=== PATIENT | male | born 1945 | race Caucasian/White ===

== ENCOUNTER 2024-09-11 21:26 | Inpatient (IN) | payer MEDICARE ==
[~2024-09-11] VITALS: Ht 167.6 cm; Wt 58.1 kg
[2024-09-11] MEDS ORDERED: AMIODARONE HCL 150 MG in DEXT 5% WATER 97 ML IV ONE (21:45)
[2024-09-11 22:15] VITALS: PULSE 112; RESP 34; O2SAT 97
[2024-09-11 22:15] LABS: BASOPHILS % 0.7 % (0.0-2.0); EOSINOPHILS % 2.3 % (0.0-5.0); HEMOGLOBIN. 14.1 g/dL (14.0-18.0); LYMPHOCYTES % 49.8 % (20.0-50.0); MEAN CORPUSCULAR HEMOGLOBIN 32.2 pg (28.0-32.0); MEAN CORPUSCULAR HGB CONC 32.2 g/dL (31.0-37.0); MEAN PLATELET VOLUME 9.2 fl (7.4-10.4); MONOCYTES % 3.9 % (2.0-8.0); NEUTROPHILS % 43.3 % (40.0-76.0); PLATELET 251 x1000/uL (130-400); RED CELL DISTRIBUTION WIDTH 13.6 % (11.6-14.6); WHITE BLOOD COUNT 14.9 x1000/uL (4.5-11.0)
[2024-09-11 22:20] LABS: CARBON DIOXIDE 16 mEq/L (21-32); CHLORIDE 106 mEq/L (98-107); POTASSIUM 3.1 mEq/L (3.5-5.1); SODIUM 139 mEq/L (136-145)
[2024-09-11 22:21] LABS: CALCIUM 8.7 mg/dL (8.7-10.4)
[2024-09-11 22:25] LABS: CREATININE 1.1 mg/dL (0.6-1.3)
[2024-09-11 22:26] LABS: GLUCOSE 285 mg/dL (70-105); UREA NITROGEN BLOOD 13 mg/dL (9-23)
[2024-09-11 22:27] LABS: ALANINE AMINOTRANSFERASE 120 IU/L (10-49); ASPARTATE AMINOTRANSFERASE 125 IU/L (<34)
[2024-09-11 22:28] LABS: BILIRUBIN DIRECT 0.4 mg/dL (<=3.0); BILIRUBIN TOTAL 1.6 mg/dL (0.1-1.0); PROTEIN TOTAL 6.7 g/dL (6.0-8.3)
[2024-09-11] MEDS: PROPOFOL 10MG/ML 100ML 100 ML IV STA (22:30)
[2024-09-11 22:31] LABS: D-DIMER 6.91 mg/L FEU (<0.50); INR 0.9; PARTIAL THROMBOPLASTIN TIME 30.5 sec (23.4-31.0); PROTHROMBIN TIME 10.6 sec (9.6-11.0)
[2024-09-11] MEDS: PIPERACILLIN/TAZO 3.375G/50ML 50 ML IV ONE (22:32)
[2024-09-11 22:34] LABS: ETHANOL BLOOD < 10 mg/dL (<10); LACTIC ACID 10.8 mmol/L (0.4-2.0); TROPONIN I HIGH SENSITIVITY 626 ng/L (3.0-53)
[2024-09-11 22:35] LABS: CLARITY URINE CLEAR (CLEAR); COLOR URINE YELLOW (YELLOW); GLUCOSE URINE 2+ (NEGATIVE); KETONES URINE NEGATIVE (NEGATIVE); LEUKOCYTE ESTERASE URINE NEGATIVE (NEGATIVE); NITRITE URINE NEGATIVE (NEGATIVE); OCCULT BLOOD URINE 3+ (NEGATIVE); PROTEIN URINE 2+ (NEGATIVE); SPECIFIC GRAVITY URINE 1.032 (1.005-1.030); UROBILINOGEN URINE 0.2 E.U./dL (0.2-1.0)
[2024-09-11 22:46] LABS: *AMPHETAMINES SCREEN URINE NEGATIVE (NEGATIVE); *BARBITURATES SCREEN URINE NEGATIVE (NEGATIVE); *BENZODIAZEPINES SCREEN URINE NEGATIVE (NEGATIVE); *COCAINE SCREEN URINE NEGATIVE (NEGATIVE); CANNABINOID URINE SCREEN PRESUMPTIVE POSITIVE (NEGATIVE); ECSTASY MDMA SCREEN URINE NEGATIVE (NEGATIVE); METHADONE URINE SCREEN NEGATIVE (NEGATIVE); OPIATES URINE SCREEN NEGATIVE (NEGATIVE); PHENCYCLIDINE URINE SCREEN NEGATIVE (NEGATIVE)
[2024-09-11 22:57] LABS: WBC URINE 0-2 /hpf (0-2)
[2024-09-11 22:58] LABS: BACTERIA URINE NONE SEEN; RBC URINE 15-25 /hpf (0-2); SQUAMOUS EPITHELIAL CELL URINE FEW /lpf (RARE/1+)
[2024-09-11] MEDS: SODIUM CHLORIDE 0.9% (SEPSIS BOLUS) IV ONE (23:01)
[2024-09-11] MEDS: AMIODARONE 150MG/100ML D5W 100 ML IV NR (23:08)
[2024-09-11] MEDS: IOHEXOL-350 100 ML BOTTLE ONE (23:29)
[2024-09-12] VITALS (93 sets, daily range): BP systolic 83–130; BP diastolic 46–94; PULSE 64–82; RESP 16–32; TEMP 37.1964–37.2252; O2SAT 91–100
[2024-09-12] MEDS: VANCOMYCIN 1G PREMIX 200 ML IV ONE (00:07)
[2024-09-12] MEDS: KCL 20MEQ/100ML PREMIX 100 ML IV ONE (00:27)
[2024-09-12] MEDS: ASPIRIN 300MG SUPP PR ONE (00:27)
[2024-09-12] MEDS: ENOXAPARIN 80MG/0.8ML SYR SUBCUT ONE (00:30)
[2024-09-12 01:03] LABS: TROPONIN I HIGH SENSITIVITY 2062 ng/L (3.0-53)
[2024-09-12 01:51] LABS: BG BASE EXCESS -5.3 mmol/L (-2.0-3.0); BG CARBOXYHEMOGLOBIN 0.3 % (0.5-1.5); BG DEOXYHEMOGLOBIN 0.4 % (0.0-5.0); BG FRACTION INSPIRED OXYGEN 100; BG METHEMOGLOBIN 0.1 % (0.5-1.5); BG OXYGEN SATURATION 99.6 % (94.0-98.0); BG OXYHEMOGLOBIN 99.2 % (94.0-98.0); BG PCO2 33.7 mmHg (35.0-48.0); BG PH 7.368 (7.350-7.450); BG PO2 232.7 mmHg (83.0-108.0); BG SAMPLE SITE RIGHT RADIAL; BG TOTAL HEMOGLOBIN 15.5 g/dL (13.5-17.5); BG VENT MODE VENT - AC
[2024-09-12] MEDS ORDERED: PROPOFOL 10MG/ML 100ML 100 ML IV PRN (02:45)
[2024-09-12] MEDS ORDERED: ONDANSETRON HCL 4MG/2ML INJ IV PRN (02:45)
[2024-09-12] MEDS: PROPOFOL 10MG/ML 100ML 100 ML IV PRN (03:01)
[2024-09-12 03:15] LABS: BG BASE EXCESS -7.1 mmol/L (-2.0-3.0); BG CARBOXYHEMOGLOBIN 0.1 % (0.5-1.5); BG DEOXYHEMOGLOBIN 0.4 % (0.0-5.0); BG FRACTION INSPIRED OXYGEN 100; BG HCO3 ACT 16.4 mmol/L (21.0-28.0); BG METHEMOGLOBIN 0.1 % (0.5-1.5); BG OXYGEN SATURATION 99.6 % (94.0-98.0); BG OXYHEMOGLOBIN 99.4 % (94.0-98.0); BG PCO2 28.2 mmHg (35.0-48.0); BG PH 7.382 (7.350-7.450); BG PO2 290.7 mmHg (83.0-108.0); BG SAMPLE SITE RIGHT RADIAL; BG TOTAL HEMOGLOBIN 14.6 g/dL (13.5-17.5); BG VENT MODE VENT - AC
[2024-09-12] MEDS ORDERED: PHENYLEPHRINE 50 MG in DEXT 5% WATER 245 ML IV PRN (03:30)
[2024-09-12] MEDS ORDERED: FENTANYL 2500MCG/250ML PMX 250 ML IV PRN (03:30)
[2024-09-12] MEDS: KCL 20MEQ/100ML PREMIX 100 ML IV SCH (03:46)
[2024-09-12] MEDS: SODIUM CHLORIDE 0.9% 1,000 ML IV SCH (03:46)
[2024-09-12] MEDS ORDERED: PHENYLEPHRINE 50MG/250ML PMX IV PRN (04:00)
[2024-09-12] MEDS: FENTANYL 2500MCG/250ML PMX 250 ML IV PRN (04:06)
[2024-09-12] MEDS ORDERED: HEPARIN 25,000 UNITS PREMIX 250 ML IV SCH (04:30)
[2024-09-12] MEDS ORDERED: GUAIFENESIN 200MG/10ML SUGAR FREE UDC PO PRN (04:45)
[2024-09-12] MEDS ORDERED: IPRATROPIUM/ALBUTEROL 0.5-3(2.5)MG/3ML NEB HHN PRN ×2 (04:45)
[2024-09-12] MEDS ORDERED: DEXTROSE 50% WATER 50ML SYRINGE IV PRN (04:45)
[2024-09-12] MEDS ORDERED: HEPARIN BOLUS PRN aPTT <30 IV (04:45)
[2024-09-12] MEDS ORDERED: DOCUSATE SODIUM 100MG CAPSULE PO PRN (04:45)
[2024-09-12] MEDS: PIPERACILLIN/TAZO 3.375G/50ML 50 ML IV SCH (06:31)
[2024-09-12] MEDS: BLOOD SUGAR DIAGNOSTIC STRIP TEST SCH (06:55)
[2024-09-12] MEDS: INSULIN LISPRO 100 UNITS/ML SUBCUT SCH (06:57)
[2024-09-12] MEDS: HEPARIN 25,000 UNITS PREMIX 250 ML IV SCH (07:37)
[2024-09-12] MEDS: HEPARIN 60 UNITS/KG BOLUS IV NR (07:45)
[2024-09-12 09:41] LABS: HEMATOCRIT. 43.5 % (42.0-52.0); HEMOGLOBIN. 14.4 g/dL (14.0-18.0); MEAN CORPUSCULAR HEMOGLOBIN 32.2 pg (28.0-32.0); MEAN CORPUSCULAR VOLUME 97.6 fL (80.0-94.0); MEAN PLATELET VOLUME 8.9 fl (7.4-10.4); PLATELET 239 x1000/uL (130-400); RED BLOOD CELL COUNT 4.46 mill/uL (4.7-6.1); RED CELL DISTRIBUTION WIDTH 13.5 % (11.6-14.6); WHITE BLOOD COUNT 22.7 x1000/uL (4.5-11.0)
[2024-09-12 09:59] LABS: DIFFERENTIAL COMMENT 1
[2024-09-12 10:07] LABS: CARBON DIOXIDE 20 mEq/L (21-32); CHLORIDE 106 mEq/L (98-107); POTASSIUM 4.5 mEq/L (3.5-5.1); SODIUM 137 mEq/L (136-145)
[2024-09-12 10:08] LABS: CALCIUM 8.8 mg/dL (8.7-10.4)
[2024-09-12 10:13] LABS: CREATININE 0.9 mg/dL (0.6-1.3); TRIGLYCERIDE 153 mg/dL (0-150); UREA NITROGEN BLOOD 14 mg/dL (9-23)
[2024-09-12 10:14] LABS: LDL CHOLESTEROL 71 mg/dL (5-100)
[2024-09-12 10:15] LABS: CHOLESTEROL 140 mg/dL (<200); HDL CHOLESTEROL 37 mg/dL (>55)
[2024-09-12 10:16] LABS: ALANINE AMINOTRANSFERASE 200 IU/L (10-49); ALBUMIN 3.9 g/dL (3.2-4.8); ASPARTATE AMINOTRANSFERASE 187 IU/L (<34); BILIRUBIN DIRECT 0.6 mg/dL (<=3.0); BILIRUBIN TOTAL 1.7 mg/dL (0.1-1.0); PHOSPHORUS 2.4 mg/dL (2.5-4.9); PROTEIN TOTAL 6.7 g/dL (6.0-8.3); THYROID STIMULATING HORMONE 4.42 uIU/mL (0.55-4.78)
[2024-09-12 10:18] LABS: LACTIC ACID 4.5 mmol/L (0.4-2.0)
[2024-09-12 10:22] LABS: GLUCOSE 135 mg/dL (70-105)
[2024-09-12 10:27] LABS: CREATINE KINASE 2910 IU/L (46-171)
[2024-09-12 10:28] LABS: TROPONIN I HIGH SENSITIVITY 3601 ng/L (3.0-53)
[2024-09-12] MEDS: ASPIRIN 81MG TABLET PO SCH (10:40)
[2024-09-12] MEDS: PANTOPRAZOLE SODIUM 40 MG/VIAL IV SCH (10:40)
[2024-09-12 11:32] LABS: FOLIC ACID (FOLATE) SERUM 12.19 ng/mL (>5.38); VITAMIN B12 SERUM 379 pg/mL (211-911)
[2024-09-12] MEDS: ACETAMINOPHEN 325MG TABLET PO PRN ×2 (12:02→22:36)
[2024-09-12 12:53] LABS: PLATELET ESTIMATE NORMAL
[2024-09-12] MEDS: ACETAMINOPHEN 650MG/20.3ML UDC NG NR (13:24)
[2024-09-12] MEDS ORDERED: VANCOMYCIN 750MG/150ML (BAXTER) IV SCH (15:00)
[2024-09-12 15:42] LABS: TROPONIN I HIGH SENSITIVITY 2426 ng/L (3.0-53)
[2024-09-12 15:46] LABS: CREATINE KINASE 2485 IU/L (46-171)
[2024-09-12] MEDS: VANCOMYCIN 750MG PREMIX 150 ML IV SCH (17:24)
[2024-09-12] MEDS: HEPARIN BOLUS PRN aPTT 30-44 IV (17:25)
[2024-09-12] MEDS: BUDESONIDE 0.5MG/2ML NEB HHN SCH (20:46)
[2024-09-12] MEDS: OSELTAMIVIR 75MG CAPSULE PO SCH (20:58)
[2024-09-12] MEDS: ATORVASTATIN CALCIUM 40MG TABLET PO SCH (20:58)
[2024-09-12] MEDS: PIPERACILLIN/TAZO 3.375G/100ML IV SCH (22:25)
[2024-09-13] VITALS (79 sets, daily range): BP systolic 83–133; BP diastolic 49–94; PULSE 61–83; RESP 10–21; TEMP 99.4–100.3; O2SAT 95–100
[2024-09-13 01:12] LABS: TROPONIN I HIGH SENSITIVITY 1409 ng/L (3.0-53)
[2024-09-13] MEDS ORDERED: FENTANYL 2500MCG/250ML PMX 250 ML IV PRN (01:15)
[2024-09-13] MEDS: PROPOFOL 10MG/ML 100ML 100 ML IV PRN (04:11)
[2024-09-13 05:41] LABS: BASOPHILS % 0.5 % (0.0-2.0); EOSINOPHILS % 0.4 % (0.0-5.0); HEMATOCRIT. 38.3 % (42.0-52.0); HEMOGLOBIN. 12.8 g/dL (14.0-18.0); LYMPHOCYTES % 13.3 % (20.0-50.0); MEAN CORPUSCULAR HEMOGLOBIN 32.1 pg (28.0-32.0); MEAN CORPUSCULAR HGB CONC 33.4 g/dL (31.0-37.0); MEAN PLATELET VOLUME 9.5 fl (7.4-10.4); MONOCYTES % 7.1 % (2.0-8.0); NEUTROPHILS % 78.7 % (40.0-76.0); PLATELET 203 x1000/uL (130-400); RED BLOOD CELL COUNT 3.99 mill/uL (4.7-6.1); RED CELL DISTRIBUTION WIDTH 13.8 % (11.6-14.6); WHITE BLOOD COUNT 15.8 x1000/uL (4.5-11.0)
[2024-09-13 05:45] LABS: CARBON DIOXIDE 22 mEq/L (21-32); CHLORIDE 108 mEq/L (98-107); POTASSIUM 3.7 mEq/L (3.5-5.1); SODIUM 139 mEq/L (136-145)
[2024-09-13 05:46] LABS: CALCIUM 7.9 mg/dL (8.7-10.4)
[2024-09-13 05:51] LABS: GLUCOSE 101 mg/dL (70-105); TRIGLYCERIDE 218 mg/dL (0-150); UREA NITROGEN BLOOD 10 mg/dL (9-23)
[2024-09-13 08:42] LABS: BG BASE EXCESS -5.7 mmol/L (-2.0-3.0); BG CARBOXYHEMOGLOBIN 0.3 % (0.5-1.5); BG DEOXYHEMOGLOBIN 3.2 % (0.0-5.0); BG FRACTION INSPIRED OXYGEN 50; BG METHEMOGLOBIN 0.3 % (0.5-1.5); BG OXYGEN SATURATION 96.8 % (94.0-98.0); BG OXYHEMOGLOBIN 96.2 % (94.0-98.0); BG PH 7.353 (7.350-7.450); BG PO2 90.4 mmHg (83.0-108.0); BG SAMPLE SITE RIGHT RADIAL; BG TOTAL HEMOGLOBIN 12.8 g/dL (13.5-17.5); BG VENT MODE VENT - P/C
[2024-09-13] MEDS: FENTANYL 2500MCG/250ML PMX 250 ML IV PRN (16:13)
[2024-09-13] MEDS: BLOOD SUGAR DIAGNOSTIC STRIP TEST SCH (17:30)
[2024-09-13] MEDS: INSULIN LISPRO 100 UNITS/ML SUBCUT SCH (18:00)
[2024-09-13] MEDS ORDERED: VANCOMYCIN 1.5GM PMX (XELLIA) 300 ML IV SCH (18:00)
[2024-09-13] MEDS: LORAZEPAM 2MG/ML INJ IV PRN (21:45)
[2024-09-13] MEDS ORDERED: FENTANYL CITRATE 2,500 MCG in SODIUM CHLORIDE 0.9% 200 ML IV PRN (23:45)
[2024-09-14] VITALS (72 sets, daily range): BP systolic 109–174; BP diastolic 48–106; PULSE 75–115; RESP 0–27; TEMP 37.7808; O2SAT 94–100
[2024-09-14] MEDS ORDERED: FENTANYL 2500MCG/250ML PMX 250 ML IV PRN ×2 (04:15→04:30)
[2024-09-14] MEDS ORDERED: FENTANYL CITRATE 2,500 MCG in SODIUM CHLORIDE 0.9% 200 ML IV PRN (04:15)
[2024-09-14 05:15] LABS: BASOPHILS % 0.4 % (0.0-2.0); EOSINOPHILS % 0.1 % (0.0-5.0); HEMATOCRIT. 33.1 % (42.0-52.0); HEMOGLOBIN. 11.1 g/dL (14.0-18.0); LYMPHOCYTES % 7.7 % (20.0-50.0); MEAN CORPUSCULAR HGB CONC 33.4 g/dL (31.0-37.0); MEAN CORPUSCULAR VOLUME 95.7 fL (80.0-94.0); MEAN PLATELET VOLUME 10.1 fl (7.4-10.4); MONOCYTES % 8.1 % (2.0-8.0); NEUTROPHILS % 83.7 % (40.0-76.0); PLATELET 184 x1000/uL (130-400); RED BLOOD CELL COUNT 3.46 mill/uL (4.7-6.1); RED CELL DISTRIBUTION WIDTH 13.8 % (11.6-14.6); WHITE BLOOD COUNT 14.4 x1000/uL (4.5-11.0)
[2024-09-14 05:21] LABS: PHOSPHORUS 2.1 mg/dL (2.5-4.9); TRIGLYCERIDE 143 mg/dL (0-150)
[2024-09-14] MEDS: PROPOFOL 10MG/ML 100ML 100 ML IV PRN (11:00)
[2024-09-14 13:20] LABS: BG BASE EXCESS -9.6 mmol/L (-2.0-3.0); BG CARBOXYHEMOGLOBIN 0.5 % (0.5-1.5); BG DEOXYHEMOGLOBIN 10.6 % (0.0-5.0); BG FRACTION INSPIRED OXYGEN 35; BG METHEMOGLOBIN 0.1 % (0.5-1.5); BG OXYGEN SATURATION 89.3 % (94.0-98.0); BG OXYHEMOGLOBIN 88.8 % (94.0-98.0); BG PCO2 46.1 mmHg (35.0-48.0); BG PO2 61.6 mmHg (83.0-108.0); BG SAMPLE SITE RIGHT RADIAL; BG TOTAL HEMOGLOBIN 12.7 g/dL (13.5-17.5); BG VENT MODE VENT - CPAP
[2024-09-14 13:28] LABS: CARBON DIOXIDE 18 mEq/L (21-32); CHLORIDE 110 mEq/L (98-107); POTASSIUM 3.7 mEq/L (3.5-5.1); SODIUM 139 mEq/L (136-145)
[2024-09-14 13:29] LABS: CALCIUM 8.2 mg/dL (8.7-10.4)
[2024-09-14 13:34] LABS: CREATININE 0.8 mg/dL (0.6-1.3); GLUCOSE 163 mg/dL (70-105); UREA NITROGEN BLOOD 10 mg/dL (9-23)
[2024-09-14 15:07] LABS: BG BASE EXCESS -4.9 mmol/L (-2.0-3.0); BG CARBOXYHEMOGLOBIN 0.3 % (0.5-1.5); BG DEOXYHEMOGLOBIN 6.8 % (0.0-5.0); BG FRACTION INSPIRED OXYGEN 40; BG HCO3 ACT 20.3 mmol/L (21.0-28.0); BG METHEMOGLOBIN 0.3 % (0.5-1.5); BG OXYGEN SATURATION 93.2 % (94.0-98.0); BG OXYHEMOGLOBIN 92.6 % (94.0-98.0); BG PCO2 37.8 mmHg (35.0-48.0); BG PH 7.347 (7.350-7.450); BG PO2 68.7 mmHg (83.0-108.0); BG SAMPLE SITE LEFT RADIAL; BG TOTAL HEMOGLOBIN 11.3 g/dL (13.5-17.5); BG TOTAL RESPIRATORY RATE 22 b/min; BG VENT MODE VENT - SIMV
[2024-09-14] MEDS: POTASSIUM PHOSPHATE 15 MMOL in DEXT 5% WATER 245 ML IV NR (15:44)
[2024-09-15] VITALS (107 sets, daily range): BP systolic 99–177; BP diastolic 49–142; PULSE 65–124; RESP 10–30; TEMP 36.6696–37.94748; O2SAT 78–100
[2024-09-15 06:14] LABS: BASOPHILS % 0.3 % (0.0-2.0); EOSINOPHILS % 0.1 % (0.0-5.0); HEMATOCRIT. 31.2 % (42.0-52.0); HEMOGLOBIN. 10.5 g/dL (14.0-18.0); LYMPHOCYTES % 8.8 % (20.0-50.0); MEAN CORPUSCULAR HEMOGLOBIN 32.5 pg (28.0-32.0); MEAN CORPUSCULAR HGB CONC 33.7 g/dL (31.0-37.0); MEAN CORPUSCULAR VOLUME 96.3 fL (80.0-94.0); MEAN PLATELET VOLUME 9.7 fl (7.4-10.4); MONOCYTES % 8.9 % (2.0-8.0); NEUTROPHILS % 81.9 % (40.0-76.0); PLATELET 182 x1000/uL (130-400); RED BLOOD CELL COUNT 3.24 mill/uL (4.7-6.1); RED CELL DISTRIBUTION WIDTH 13.4 % (11.6-14.6)
[2024-09-15 06:20] LABS: CHLORIDE 111 mEq/L (98-107); POTASSIUM 3.3 mEq/L (3.5-5.1); SODIUM 141 mEq/L (136-145)
[2024-09-15 06:21] LABS: CARBON DIOXIDE 20 mEq/L (21-32)
[2024-09-15 06:26] LABS: CREATININE 0.6 mg/dL (0.6-1.3); GLUCOSE 125 mg/dL (70-105); TRIGLYCERIDE 143 mg/dL (0-150); UREA NITROGEN BLOOD 8 mg/dL (9-23)
[2024-09-15 06:39] LABS: CREATINE KINASE 1726 IU/L (46-171); TROPONIN I HIGH SENSITIVITY 3984 ng/L (3.0-53)
[2024-09-15] MEDS ORDERED: LIDOCAINE HCL 1% 20ML VIAL ONE (08:12)
[2024-09-15] MEDS ORDERED: HEPARIN 1000 UNITS/ML 10ML ONE (08:12)
[2024-09-15] MEDS ORDERED: VERAPAMIL HCL 2.5 MG/1 ML 2ML VIAL IV ONE (08:19)
[2024-09-15] MEDS ORDERED: IODIXANOL 320MG/ML 100 ML BOTTLE IV ONE (08:19)
[2024-09-15] MEDS ORDERED: DIPHENHYDRAMINE 50MG/ML VIAL ONE (09:04)
[2024-09-15] MEDS ORDERED: ACETAMINOPHEN 325MG TABLET PO PRN ×2 (10:15→11:30)
[2024-09-15] MEDS ORDERED: NITROGLYCERIN 0.4MG TABLET SL SL PRN (11:30)
[2024-09-15 12:14] LABS: BG CARBOXYHEMOGLOBIN 0.3 % (0.5-1.5); BG FRACTION INSPIRED OXYGEN 50; BG HCO3 ACT 24.6 mmol/L (21.0-28.0); BG METHEMOGLOBIN 0.2 % (0.5-1.5); BG OXYHEMOGLOBIN 94.5 % (94.0-98.0); BG PCO2 44.5 mmHg (35.0-48.0); BG PO2 77.7 mmHg (83.0-108.0); BG SAMPLE SITE RIGHT RADIAL; BG TOTAL HEMOGLOBIN 10.6 g/dL (13.5-17.5); BG VENT MODE VENT - SIMV
[2024-09-15] MEDS: KCL 20MEQ/100ML PREMIX 100 ML IV SCH ×2 (12:33→20:14)
[2024-09-15] MEDS: PROPOFOL 10MG/ML 100ML 100 ML IV PRN (12:36)
[2024-09-15] MEDS ORDERED: EPOETIN ALFA 10000UNITS/ML VIAL SUBCUT NR (13:00)
[2024-09-15] MEDS: EPOETIN ALFA-EPBX 10,000 UNIT/ML VIAL SUBCUT NR (14:03)
[2024-09-15] MEDS: FUROSEMIDE 40MG/4ML VIAL IVP SCH (15:32)
[2024-09-15 17:27] LABS: CLARITY URINE CLEAR (CLEAR); COLOR URINE DARK YELLOW (YELLOW); GLUCOSE URINE NEGATIVE (NEGATIVE); KETONES URINE TRACE (NEGATIVE); LEUKOCYTE ESTERASE URINE NEGATIVE (NEGATIVE); NITRITE URINE NEGATIVE (NEGATIVE); OCCULT BLOOD URINE 2+ (NEGATIVE); PH URINE 5.5 (4.5-8.0); PROTEIN URINE 2+ (NEGATIVE); SPECIFIC GRAVITY URINE 1.068 (1.005-1.030)
[2024-09-15 17:54] LABS: BACTERIA URINE 1+; RBC URINE 15-25 /hpf (0-2); SQUAMOUS EPITHELIAL CELL URINE RARE /lpf (RARE/1+); WBC URINE 0-2 /hpf (0-2)
[2024-09-15] MEDS: MAGNESIUM 4 G PREMIX 100 ML IV NR (18:29)
[2024-09-15] MEDS: DEXMEDETOMIDINE 400 MCG/100 ML 100 ML IV PRN (20:14)
[2024-09-15] MEDS: DOCUSATE SODIUM 100MG CAPSULE PO SCH (20:15)
[2024-09-15] MEDS: ASCORBIC ACID 500 MG TABLET PO SCH (20:21)
[2024-09-16] VITALS (104 sets, daily range): BP systolic 88–135; BP diastolic 48–87; PULSE 51–76; RESP 10–24; TEMP 36.55848–37.05852; O2SAT 14–100
[2024-09-16 07:02] LABS: BASOPHILS % 0.7 % (0.0-2.0); CALCIUM 7.9 mg/dL (8.7-10.4); CARBON DIOXIDE 26 mEq/L (21-32); CHLORIDE 106 mEq/L (98-107); EOSINOPHILS % 0.9 % (0.0-5.0); HEMATOCRIT. 33.2 % (42.0-52.0); HEMOGLOBIN. 11.4 g/dL (14.0-18.0); LYMPHOCYTES % 13.3 % (20.0-50.0); MEAN CORPUSCULAR HEMOGLOBIN 32.1 pg (28.0-32.0); MEAN CORPUSCULAR HGB CONC 34.3 g/dL (31.0-37.0); MEAN CORPUSCULAR VOLUME 93.5 fL (80.0-94.0); MEAN PLATELET VOLUME 9.9 fl (7.4-10.4); MONOCYTES % 10.2 % (2.0-8.0); NEUTROPHILS % 74.9 % (40.0-76.0); PLATELET 161 x1000/uL (130-400); POTASSIUM 3.6 mEq/L (3.5-5.1); RED BLOOD CELL COUNT 3.55 mill/uL (4.7-6.1); RED CELL DISTRIBUTION WIDTH 14.4 % (11.6-14.6); SODIUM 141 mEq/L (136-145); WHITE BLOOD COUNT 10.2 x1000/uL (4.5-11.0)
[2024-09-16 07:08] LABS: CREATININE 0.8 mg/dL (0.6-1.3); GLUCOSE 103 mg/dL (70-105); TRIGLYCERIDE 144 mg/dL (0-150); UREA NITROGEN BLOOD 10 mg/dL (9-23)
[2024-09-16 07:10] LABS: PHOSPHORUS 2.4 mg/dL (2.5-4.9)
[2024-09-16 07:16] LABS: TROPONIN I HIGH SENSITIVITY 1871 ng/L (3.0-53)
[2024-09-16] MEDS ORDERED: LORAZEPAM 2MG/ML INJ IV PRN (10:45)
[2024-09-16] MEDS: PROPOFOL 10MG/ML 100ML 100 ML IV PRN (13:04)
[2024-09-16] MEDS: FUROSEMIDE 40MG/4ML VIAL IVP NR (21:51)
[2024-09-17] VITALS (101 sets, daily range): BP systolic 84–156; BP diastolic 46–110; PULSE 53–98; RESP 13–35; TEMP 36.89184–37.7808; O2SAT 86–100
[2024-09-17 03:13] LABS: BASOPHILS % 0.6 % (0.0-2.0); CHLORIDE 102 mEq/L (98-107); EOSINOPHILS % 1.6 % (0.0-5.0); HEMATOCRIT. 36.6 % (42.0-52.0); HEMOGLOBIN. 12.6 g/dL (14.0-18.0); LYMPHOCYTES % 13.4 % (20.0-50.0); MEAN CORPUSCULAR HEMOGLOBIN 32.4 pg (28.0-32.0); MEAN CORPUSCULAR HGB CONC 34.3 g/dL (31.0-37.0); MEAN CORPUSCULAR VOLUME 94.5 fL (80.0-94.0); MEAN PLATELET VOLUME 8.9 fl (7.4-10.4); MONOCYTES % 10.7 % (2.0-8.0); NEUTROPHILS % 73.7 % (40.0-76.0); PLATELET 186 x1000/uL (130-400); POTASSIUM 3.2 mEq/L (3.5-5.1); RED BLOOD CELL COUNT 3.87 mill/uL (4.7-6.1); RED CELL DISTRIBUTION WIDTH 14.6 % (11.6-14.6); SODIUM 138 mEq/L (136-145); WHITE BLOOD COUNT 11.7 x1000/uL (4.5-11.0)
[2024-09-17 03:14] LABS: CARBON DIOXIDE 28 mEq/L (21-32)
[2024-09-17 03:15] LABS: CALCIUM 8.2 mg/dL (8.7-10.4)
[2024-09-17 03:19] LABS: CREATININE 0.9 mg/dL (0.6-1.3); GLUCOSE 112 mg/dL (70-105); TRIGLYCERIDE 235 mg/dL (0-150); UREA NITROGEN BLOOD 10 mg/dL (9-23)
[2024-09-17] MEDS ORDERED: FENTANYL CITRATE/PF 2,500 MCG in SODIUM CHLORIDE 0.9% 200 ML IV PRN (09:00)
[2024-09-17] MEDS: FENTANYL CITRATE 1,000 MCG in SODIUM CHLORIDE 0.9% 80 ML IV PRN (09:44)
[2024-09-17] MEDS: KCL 20MEQ/100ML PREMIX 100 ML IV SCH (09:45)
[2024-09-17 11:28] LABS: BG BASE EXCESS 3.6 mmol/L (-2.0-3.0); BG CARBOXYHEMOGLOBIN 0.3 % (0.5-1.5); BG FRACTION INSPIRED OXYGEN 50; BG HCO3 ACT 27.6 mmol/L (21.0-28.0); BG METHEMOGLOBIN 0.3 % (0.5-1.5); BG OXYHEMOGLOBIN 91.4 % (94.0-98.0); BG PCO2 39.8 mmHg (35.0-48.0); BG PH 7.459 (7.350-7.450); BG PO2 61.5 mmHg (83.0-108.0); BG SAMPLE SITE RIGHT RADIAL; BG TOTAL HEMOGLOBIN 12.6 g/dL (13.5-17.5); BG VENT MODE VENT - AC
[2024-09-17] MEDS ORDERED: DIPHENHYDRAMINE 25MG CAPSULE PO PRN (21:00)
[2024-09-17] MEDS ORDERED: BISACODYL 10MG SUPP PR PRN (21:00)
[2024-09-17] MEDS: ALLOPURINOL 300 MG TABLET PO SCH (21:13)
[2024-09-17] MEDS: CHLORHEXIDINE GLUCONATE 4% EXTERNAL USE TOP SCH (21:13)
[2024-09-17] MEDS ORDERED: PROPOFOL 10MG/ML 100ML 100 ML IV PRN (23:00)
[2024-09-17] MEDS: PROPOFOL 10MG/ML 100ML 100 ML IV PRN (23:35)
[2024-09-18] VITALS (80 sets, daily range): BP systolic 89–148; BP diastolic 49–89; PULSE 52–95; RESP 14–35; TEMP 36.44736–37.00296; O2SAT 92–100
[2024-09-18 00:10] LABS: CHLORIDE 103 mEq/L (98-107); SODIUM 142 mEq/L (136-145)
[2024-09-18 00:11] LABS: CARBON DIOXIDE 29 mEq/L (21-32)
[2024-09-18 00:16] LABS: CREATININE 0.9 mg/dL (0.6-1.3); GLUCOSE 133 mg/dL (70-105); UREA NITROGEN BLOOD 12 mg/dL (9-23)
[2024-09-18 00:18] LABS: PHOSPHORUS 2.4 mg/dL (2.5-4.9)
[2024-09-18] MEDS: KCL 20MEQ/100ML PREMIX 100 ML IV SCH (00:51)
[2024-09-18] MEDS: MAGNESIUM SULFATE 3 GM in DEXT 5% WATER 94 ML IV NR (01:27)
[2024-09-18 03:49] LABS: BASOPHILS % 0.6 % (0.0-2.0); HEMATOCRIT. 34.1 % (42.0-52.0); HEMOGLOBIN. 11.5 g/dL (14.0-18.0); LYMPHOCYTES % 13.3 % (20.0-50.0); MEAN CORPUSCULAR HEMOGLOBIN 31.7 pg (28.0-32.0); MEAN CORPUSCULAR HGB CONC 33.8 g/dL (31.0-37.0); MEAN CORPUSCULAR VOLUME 93.7 fL (80.0-94.0); MEAN PLATELET VOLUME 9.1 fl (7.4-10.4); MONOCYTES % 11.2 % (2.0-8.0); NEUTROPHILS % 72.9 % (40.0-76.0); PLATELET 197 x1000/uL (130-400); RED BLOOD CELL COUNT 3.64 mill/uL (4.7-6.1); RED CELL DISTRIBUTION WIDTH 14.3 % (11.6-14.6); WHITE BLOOD COUNT 11.4 x1000/uL (4.5-11.0)
[2024-09-18 03:53] LABS: INR 0.9; PROTHROMBIN TIME 10.5 sec (9.6-11.0)
[2024-09-18 03:56] LABS: CHLORIDE 104 mEq/L (98-107); POTASSIUM 3.1 mEq/L (3.5-5.1); SODIUM 141 mEq/L (136-145)
[2024-09-18 03:57] LABS: CALCIUM 7.9 mg/dL (8.7-10.4); CARBON DIOXIDE 27 mEq/L (21-32)
[2024-09-18 04:02] LABS: CREATININE 0.8 mg/dL (0.6-1.3); GLUCOSE 153 mg/dL (70-105); UREA NITROGEN BLOOD 12 mg/dL (9-23)
[2024-09-18 04:04] LABS: PHOSPHORUS 2.6 mg/dL (2.5-4.9)
[2024-09-18] MEDS ORDERED: PAPAVERINE HCL 180MG in SODIUM CHLORIDE 0.9% 24ML IV NR (05:00)
[2024-09-18] MEDS ORDERED: EPINEPHRINE 5 MG in DEXT 5% WATER 250 ML IV NR (05:00)
[2024-09-18] MEDS ORDERED: NOREPINEPHRINE 8MG/250ML PMX 250 ML IV NR (05:00)
[2024-09-18] MEDS ORDERED: DEL NIDO CARDIOPLEGIA 1,000 ML (PREMIX) IV PRN ×2 (05:00)
[2024-09-18] MEDS ORDERED: CEFAZOLIN 2,000 MG in DEXT 5% WATER 100 ML IV NR (05:00)
[2024-09-18] MEDS ORDERED: NICARDIPINE 40MG/200ML PREMIX 200 ML IV NR (05:00)
[2024-09-18] MEDS ORDERED: DOBUTAMINE 250 MG/250 ML PREMIX IV NR (05:00)
[2024-09-18] MEDS: CHLORHEXIDINE GLUCONATE 4% EXTERNAL USE TOP SCH (05:12)
[2024-09-18] MEDS ORDERED: THROMBIN (BOVINE) 5000 UNITS/VIAL TOP ONE (06:02)
[2024-09-18] MEDS ORDERED: SKIN ADHESIVE 0.7 GM EA TOP ONE (06:02)
[2024-09-18] MEDS ORDERED: POLYMYXIN B SULFATE 500000 UNITS/VIAL ONE (06:02)
[2024-09-18] MEDS ORDERED: DOPAMINE 400MG/250ML PREMIX 250 ML IV ONE ×2 (06:03→06:16)
[2024-09-18] MEDS ORDERED: HEPARIN 1000 UNITS/ML 10ML ONE ×2 (06:05→09:36)
[2024-09-18] MEDS ORDERED: PROPOFOL 10MG/ML 100ML 100 ML IV ONE (06:05)
[2024-09-18] MEDS ORDERED: SEVOFLURANE 250 ML LIQUID INH ONE (06:06)
[2024-09-18] MEDS ORDERED: VANCOMYCIN 1GM PMX (XELLIA) 200 ML IV SCH (06:30)
[2024-09-18] MEDS ORDERED: NITROGLYCERIN 50 MG in DEXT 5% WATER 250 ML IV NR (06:30)
[2024-09-18 06:47] LABS: POTASSIUM 3.7 mEq/L (3.5-5.1)
[2024-09-18] MEDS ORDERED: ROCURONIUM BROMIDE 10MG/ML VIAL 5ML IV ONE ×4 (07:29→11:51)
[2024-09-18] MEDS ORDERED: PHENYLEPHRINE HCL 10MG/ML 1ML IV ONE ×2 (07:37→07:38)
[2024-09-18] MEDS ORDERED: CALCIUM CHLORIDE 1GM/10ML SYR IV ONE (07:55)
[2024-09-18] MEDS ORDERED: EPINEPHRINE 0.1MG/ML (1:10,000) 10ML SYR ONE (07:56)
[2024-09-18] MEDS ORDERED: MAGNESIUM SULFATE 5GM/10ML VIAL IV PRN (08:00)
[2024-09-18] MEDS ORDERED: AMINOCAPROIC ACID 250 MG/ML 20ML VIAL ONE (08:37)
[2024-09-18] MEDS ORDERED: FENTANYL CITRATE/PF 50MCG/ML 2ML VIAL ONE ×2 (08:42→11:58)
[2024-09-18] MEDS ORDERED: PROPOFOL 200MG/20ML VIAL IV ONE (08:46)
[2024-09-18] MEDS ORDERED: ACETAMINOPHEN 1000MG/100ML 100 ML IV ONE (08:57)
[2024-09-18] MEDS ORDERED: FUROSEMIDE 100MG/10ML VIAL ONE (09:45)
[2024-09-18] MEDS ORDERED: METOCLOPRAMIDE HCL 10MG/2ML VIAL ONE (09:50)
[2024-09-18] MEDS ORDERED: LABETALOL 5MG/ML 20ML VIAL IV ONE (09:56)
[2024-09-18] MEDS ORDERED: PROTAMINE SULFATE 10MG/ML VIAL 25ML IV ONE (11:09)
[2024-09-18] MEDS ORDERED: ONDANSETRON HCL 4MG/2ML INJ ONE (11:10)
[2024-09-18] MEDS ORDERED: ALBUMIN HUMAN 25GM/100ML (25%) IV PRN (12:15)
[2024-09-18] MEDS ORDERED: CALCIUM CHLORIDE 5,000 MG in DEXT 5% WATER 500 ML IV PRN (12:15)
[2024-09-18] MEDS ORDERED: ALBUMIN HUMAN 12.5G/250ML (5%) IV PRN (12:15)
[2024-09-18] MEDS ORDERED: EPINEPHRINE 5 MG in DEXT 5% WATER 245 ML IV PRN (12:15)
[2024-09-18] MEDS ORDERED: ONDANSETRON HCL 4MG/2ML INJ IV PRN (12:15)
[2024-09-18] MEDS ORDERED: ACETAMINOPHEN 325MG TABLET PO PRN (12:15)
[2024-09-18] MEDS ORDERED: MAGNESIUM SULFATE 3 GM in DEXT 5% WATER 100 ML IV PRN (12:15)
[2024-09-18 12:32] LABS: HEMATOCRIT. 32.6 % (42.0-52.0); MEAN CORPUSCULAR HEMOGLOBIN 31.9 pg (28.0-32.0); MEAN CORPUSCULAR HGB CONC 33.7 g/dL (31.0-37.0); MEAN CORPUSCULAR VOLUME 94.7 fL (80.0-94.0); MEAN PLATELET VOLUME 9.2 fl (7.4-10.4); PLATELET 223 x1000/uL (130-400); RED BLOOD CELL COUNT 3.44 mill/uL (4.7-6.1); RED CELL DISTRIBUTION WIDTH 14.4 % (11.6-14.6); WHITE BLOOD COUNT 23.5 x1000/uL (4.5-11.0)
[2024-09-18 12:39] LABS: DIFFERENTIAL COMMENT 1
[2024-09-18 12:49] LABS: INR 1.1; PARTIAL THROMBOPLASTIN TIME 27.6 sec (23.4-31.0)
[2024-09-18 12:59] LABS: BG BASE EXCESS 2.2 mmol/L (-2.0-3.0); BG CARBOXYHEMOGLOBIN 0.1 % (0.5-1.5); BG DEOXYHEMOGLOBIN 0.7 % (0.0-5.0); BG FRACTION INSPIRED OXYGEN 100; BG HCO3 ACT 26.8 mmol/L (21.0-28.0); BG METHEMOGLOBIN 0.1 % (0.5-1.5); BG OXYGEN SATURATION 99.3 % (94.0-98.0); BG OXYHEMOGLOBIN 99.1 % (94.0-98.0); BG PH 7.423 (7.350-7.450); BG PO2 179.4 mmHg (83.0-108.0); BG SAMPLE SITE ALINE; BG VENT MODE VENT - AC
[2024-09-18 13:12] LABS: CHLORIDE 106 mEq/L (98-107); POTASSIUM 3.1 mEq/L (3.5-5.1); SODIUM 141 mEq/L (136-145)
[2024-09-18 13:13] LABS: CALCIUM 8.4 mg/dL (8.7-10.4); CARBON DIOXIDE 25 mEq/L (21-32)
[2024-09-18 13:18] LABS: CREATININE 0.8 mg/dL (0.6-1.3); GLUCOSE 166 mg/dL (70-105); UREA NITROGEN BLOOD 14 mg/dL (9-23)
[2024-09-18 13:20] LABS: ALANINE AMINOTRANSFERASE 99 IU/L (10-49); ALBUMIN 3.1 g/dL (3.2-4.8); ASPARTATE AMINOTRANSFERASE 96 IU/L (<34)
[2024-09-18 13:21] LABS: BILIRUBIN TOTAL 1.2 mg/dL (0.1-1.0); PHOSPHORUS 3.8 mg/dL (2.5-4.9); PROTEIN TOTAL 5.4 g/dL (6.0-8.3)
[2024-09-18] MEDS: DOPAMINE 400MG/250ML PREMIX 250 ML IV PRN (13:21)
[2024-09-18] MEDS: AMINOCAPROIC ACID 5,000 MG in SODIUM CHLORIDE 0.9% 250 ML IV PRN (13:22)
[2024-09-18] MEDS: INSULIN REGULAR 100 U/100 ML PREMIX IV NR (13:22)
[2024-09-18] MEDS: KCL 10MEQ/50ML PREMIX 200 ML IV PRN (13:40)
[2024-09-18] MEDS: DEXT 5%/0.45% NACL 1000ML 1,000 ML IV SCH (13:41)
[2024-09-18] MEDS: MAGNESIUM 2 G PREMIX 50 ML IV PRN (13:41)
[2024-09-18] MEDS ORDERED: SODIUM CHLORIDE 0.9% 500 ML IV PRN (14:00)
[2024-09-18] MEDS: BLOOD SUGAR DIAGNOSTIC STRIP TEST SCH ×2 (14:00→22:48)
[2024-09-18 15:09] LABS: BG CARBOXYHEMOGLOBIN 0.1 % (0.5-1.5); BG DEOXYHEMOGLOBIN 0.9 % (0.0-5.0); BG FRACTION INSPIRED OXYGEN 80; BG METHEMOGLOBIN 0.3 % (0.5-1.5); BG OXYGEN SATURATION 99.1 % (94.0-98.0); BG OXYHEMOGLOBIN 98.7 % (94.0-98.0); BG PO2 162.9 mmHg (83.0-108.0); BG SAMPLE SITE ALINE; BG VENT MODE VENT - AC
[2024-09-18] MEDS: CEFAZOLIN 1000MG PREMIX 50 ML IV SCH (16:06)
[2024-09-18] MEDS: ASPIRIN 81MG EC TABLET PO SCH (17:11)
[2024-09-18] MEDS: CLOPIDOGREL 75MG TABLET PO NR (17:11)
[2024-09-18] MEDS: MAGNESIUM HYDROXIDE 400MG/5ML 30ML UDC PO SCH (17:11)
[2024-09-18 18:31] LABS: BG BASE EXCESS 1.9 mmol/L (-2.0-3.0); BG CARBOXYHEMOGLOBIN 0.2 % (0.5-1.5); BG DEOXYHEMOGLOBIN 1.2 % (0.0-5.0); BG FRACTION INSPIRED OXYGEN 50; BG HCO3 ACT 23.9 mmol/L (21.0-28.0); BG METHEMOGLOBIN 0.3 % (0.5-1.5); BG OXYGEN SATURATION 98.8 % (94.0-98.0); BG OXYHEMOGLOBIN 98.3 % (94.0-98.0); BG PCO2 29.1 mmHg (35.0-48.0); BG PH 7.532 (7.350-7.450); BG PO2 130.8 mmHg (83.0-108.0); BG SAMPLE SITE ALINE; BG TOTAL HEMOGLOBIN 11.2 g/dL (13.5-17.5); BG TOTAL RESPIRATORY RATE 20 b/min; BG VENT MODE VENT - AC
[2024-09-18] MEDS: CALCIUM CHLORIDE 3,000 MG in DEXT 5% WATER 250 ML IV PRN (18:53)
[2024-09-18] MEDS: DEXT 5%/LACTATED RINGERS 1,000 ML IV ONE (18:53)
[2024-09-18 19:56] LABS: PLATELET ESTIMATE NORMAL
[2024-09-18 20:37] LABS: HEMATOCRIT. 29.6 % (42.0-52.0); HEMOGLOBIN. 10.1 g/dL (14.0-18.0); MEAN CORPUSCULAR HEMOGLOBIN 31.9 pg (28.0-32.0); MEAN CORPUSCULAR HGB CONC 34.2 g/dL (31.0-37.0); MEAN CORPUSCULAR VOLUME 93.3 fL (80.0-94.0); MEAN PLATELET VOLUME 8.9 fl (7.4-10.4); PLATELET 206 x1000/uL (130-400); RED BLOOD CELL COUNT 3.17 mill/uL (4.7-6.1); RED CELL DISTRIBUTION WIDTH 14.1 % (11.6-14.6); WHITE BLOOD COUNT 17.6 x1000/uL (4.5-11.0)
[2024-09-18 20:38] LABS: DIFFERENTIAL COMMENT 1
[2024-09-18 20:46] LABS: CHLORIDE 108 mEq/L (98-107); POTASSIUM 3.9 mEq/L (3.5-5.1); SODIUM 141 mEq/L (136-145)
[2024-09-18 20:47] LABS: CALCIUM 8.4 mg/dL (8.7-10.4); CARBON DIOXIDE 25 mEq/L (21-32)
[2024-09-18 20:52] LABS: CREATININE 0.8 mg/dL (0.6-1.3); GLUCOSE 137 mg/dL (70-105); UREA NITROGEN BLOOD 15 mg/dL (9-23)
[2024-09-18 20:54] LABS: PHOSPHORUS 3.3 mg/dL (2.5-4.9)
[2024-09-18 21:00] LABS: PLATELET ESTIMATE NORMAL
[2024-09-18] MEDS: BACITRACIN 14GM TUBE TOP SCH (21:00)
[2024-09-18] MEDS: DOCUSATE SODIUM 100MG CAPSULE PO SCH (21:18)
[2024-09-18] MEDS ORDERED: INSULIN REGULAR 100U/100ML PMX 100 ML IV SCH (22:00)
[2024-09-18] MEDS: KCL 10MEQ/50ML PREMIX 100 ML IV PRN (22:08)
[2024-09-19] VITALS (101 sets, daily range): BP systolic 101–159; BP diastolic 53–85; PULSE 68–120; RESP 15–40; TEMP 36.55848–37.503; O2SAT 72–98
[2024-09-19] MEDS: BLOOD SUGAR DIAGNOSTIC STRIP TEST SCH ×3 (04:05→12:50)
[2024-09-19 04:17] LABS: CHLORIDE 108 mEq/L (98-107); POTASSIUM 4.1 mEq/L (3.5-5.1); SODIUM 143 mEq/L (136-145)
[2024-09-19 04:18] LABS: CALCIUM 9.6 mg/dL (8.7-10.4); CARBON DIOXIDE 25 mEq/L (21-32)
[2024-09-19 04:23] LABS: CREATININE 0.8 mg/dL (0.6-1.3); GLUCOSE 153 mg/dL (70-105); UREA NITROGEN BLOOD 13 mg/dL (9-23)
[2024-09-19 04:25] LABS: PHOSPHORUS 3.3 mg/dL (2.5-4.9)
[2024-09-19 07:33] LABS: BG BASE EXCESS 5.5 mmol/L (-2.0-3.0); BG CARBOXYHEMOGLOBIN 0.1 % (0.5-1.5); BG DEOXYHEMOGLOBIN 0.9 % (0.0-5.0); BG FRACTION INSPIRED OXYGEN 40; BG HCO3 ACT 27.5 mmol/L (21.0-28.0); BG METHEMOGLOBIN 0.3 % (0.5-1.5); BG OXYGEN SATURATION 99.1 % (94.0-98.0); BG OXYHEMOGLOBIN 98.7 % (94.0-98.0); BG PCO2 31.3 mmHg (35.0-48.0); BG PH 7.562 (7.350-7.450); BG PO2 142.2 mmHg (83.0-108.0); BG SAMPLE SITE ALINE; BG TOTAL HEMOGLOBIN 10.8 g/dL (13.5-17.5); BG VENT MODE VENT - AC
[2024-09-19 07:39] LABS: HEMATOCRIT. 28.8 % (42.0-52.0); HEMOGLOBIN. 9.9 g/dL (14.0-18.0); MEAN CORPUSCULAR HGB CONC 34.5 g/dL (31.0-37.0); MEAN CORPUSCULAR VOLUME 92.7 fL (80.0-94.0); MEAN PLATELET VOLUME 9.1 fl (7.4-10.4); PLATELET 209 x1000/uL (130-400); RED CELL DISTRIBUTION WIDTH 13.8 % (11.6-14.6); WHITE BLOOD COUNT 14.2 x1000/uL (4.5-11.0)
[2024-09-19 07:41] LABS: DIFFERENTIAL COMMENT 1
[2024-09-19 07:43] LABS: CHLORIDE 108 mEq/L (98-107); POTASSIUM 3.9 mEq/L (3.5-5.1); SODIUM 142 mEq/L (136-145)
[2024-09-19 07:44] LABS: CARBON DIOXIDE 26 mEq/L (21-32)
[2024-09-19 07:45] LABS: CALCIUM 9.1 mg/dL (8.7-10.4)
[2024-09-19 07:49] LABS: CREATININE 0.7 mg/dL (0.6-1.3)
[2024-09-19 07:50] LABS: GLUCOSE 181 mg/dL (70-105); UREA NITROGEN BLOOD 15 mg/dL (9-23)
[2024-09-19 07:52] LABS: PHOSPHORUS 2.5 mg/dL (2.5-4.9)
[2024-09-19] MEDS: IPRATROPIUM/ALBUTEROL 0.5-3(2.5)MG/3ML NEB HHN SCH (08:41)
[2024-09-19] MEDS: KCL 20MEQ/100ML PREMIX 100 ML IV SCH (08:46)
[2024-09-19] MEDS: MAGNESIUM 1 G PREMIX 100 ML IV PRN (08:46)
[2024-09-19] MEDS: ASPIRIN 81MG EC TABLET PO SCH (08:46)
[2024-09-19] MEDS: CLOPIDOGREL 75MG TABLET PO SCH (08:47)
[2024-09-19] MEDS: FAMOTIDINE 20MG/2ML VIAL IV SCH (08:47)
[2024-09-19] MEDS ORDERED: DEXTROSE 50% WATER 50ML SYRINGE IV PRN (09:15)
[2024-09-19 09:47] LABS: BG BASE EXCESS 3.8 mmol/L (-2.0-3.0); BG CARBOXYHEMOGLOBIN 0.1 % (0.5-1.5); BG DEOXYHEMOGLOBIN 1.3 % (0.0-5.0); BG FRACTION INSPIRED OXYGEN 40; BG HCO3 ACT 25.8 mmol/L (21.0-28.0); BG METHEMOGLOBIN 0.3 % (0.5-1.5); BG OXYGEN SATURATION 98.7 % (94.0-98.0); BG OXYHEMOGLOBIN 98.3 % (94.0-98.0); BG PCO2 30.7 mmHg (35.0-48.0); BG PEEP (cmH2O) 0 cmH2O; BG PH 7.543 (7.350-7.450); BG PO2 116.5 mmHg (83.0-108.0); BG SAMPLE SITE ALINE; BG TOTAL HEMOGLOBIN 11.7 g/dL (13.5-17.5); BG VENT MODE VENT - CPAP
[2024-09-19 11:05] LABS: BG BASE EXCESS -1.5 mmol/L (-2.0-3.0); BG CARBOXYHEMOGLOBIN 0.3 % (0.5-1.5); BG DEOXYHEMOGLOBIN 18.6 % (0.0-5.0); BG FRACTION INSPIRED OXYGEN 40; BG HCO3 ACT 26.4 mmol/L (21.0-28.0); BG OXYGEN SATURATION 81.3 % (94.0-98.0); BG OXYHEMOGLOBIN 81.1 % (94.0-98.0); BG PCO2 60.1 mmHg (35.0-48.0); BG PH 7.261 (7.350-7.450); BG PO2 55.6 mmHg (83.0-108.0); BG SAMPLE SITE ALINE; BG TOTAL HEMOGLOBIN 11.9 g/dL (13.5-17.5); BG VENT MODE VENT - CPAP
[2024-09-19] MEDS: INSULIN LISPRO 100 UNITS/ML SUBCUT SCH (13:37)
[2024-09-19] MEDS: FUROSEMIDE 20MG/2ML VIAL IVP SCH (13:38)
[2024-09-19 14:06] LABS: BG BASE EXCESS 1.3 mmol/L (-2.0-3.0); BG CARBOXYHEMOGLOBIN 0.9 % (0.5-1.5); BG DEOXYHEMOGLOBIN 2.3 % (0.0-5.0); BG FRACTION INSPIRED OXYGEN 40; BG HCO3 ACT 22.3 mmol/L (21.0-28.0); BG METHEMOGLOBIN 0.3 % (0.5-1.5); BG OXYGEN SATURATION 97.7 % (94.0-98.0); BG OXYHEMOGLOBIN 96.5 % (94.0-98.0); BG PCO2 24.9 mmHg (35.0-48.0); BG PO2 92.7 mmHg (83.0-108.0); BG SAMPLE SITE ALINE; BG TOTAL HEMOGLOBIN 11.2 g/dL (13.5-17.5); BG VENT MODE COOL AEROSOL
[2024-09-19] MEDS: AMIODARONE 150MG/100ML D5W 100 ML IV NR ×3 (14:26→23:47)
[2024-09-19] MEDS: AMIODARONE HCL 900 MG in DEXT 5% WATER 482 ML IV SCH (14:46)
[2024-09-19 17:17] LABS: PLATELET ESTIMATE NORMAL
[2024-09-19 18:34] LABS: BG BASE EXCESS 7.1 mmol/L (-2.0-3.0); BG CARBOXYHEMOGLOBIN 0.3 % (0.5-1.5); BG DEOXYHEMOGLOBIN 2.7 % (0.0-5.0); BG FRACTION INSPIRED OXYGEN 40; BG HCO3 ACT 27.2 mmol/L (21.0-28.0); BG METHEMOGLOBIN 0.3 % (0.5-1.5); BG OXYGEN SATURATION 97.3 % (94.0-98.0); BG OXYHEMOGLOBIN 96.7 % (94.0-98.0); BG PH 7.654 (7.350-7.450); BG PO2 83.5 mmHg (83.0-108.0); BG SAMPLE SITE ALINE; BG TOTAL HEMOGLOBIN 11.2 g/dL (13.5-17.5); BG VENT MODE NASAL CANNULA
[2024-09-19 18:48] LABS: CARBON DIOXIDE 29 mEq/L (21-32); CHLORIDE 105 mEq/L (98-107); POTASSIUM 3.3 mEq/L (3.5-5.1); SODIUM 142 mEq/L (136-145)
[2024-09-19 18:49] LABS: CALCIUM 8.9 mg/dL (8.7-10.4)
[2024-09-19 18:54] LABS: GLUCOSE 195 mg/dL (70-105); HEMOGLOBIN. 10.2 g/dL (14.0-18.0); MEAN CORPUSCULAR HEMOGLOBIN 31.8 pg (28.0-32.0); MEAN CORPUSCULAR HGB CONC 34.1 g/dL (31.0-37.0); MEAN CORPUSCULAR VOLUME 93.1 fL (80.0-94.0); MEAN PLATELET VOLUME 9.4 fl (7.4-10.4); PLATELET 254 x1000/uL (130-400); RED BLOOD CELL COUNT 3.23 mill/uL (4.7-6.1); RED CELL DISTRIBUTION WIDTH 13.9 % (11.6-14.6); UREA NITROGEN BLOOD 17 mg/dL (9-23)
[2024-09-19 18:56] LABS: PHOSPHORUS 2.2 mg/dL (2.5-4.9)
[2024-09-19 19:19] LABS: DIFFERENTIAL COMMENT 1
[2024-09-19 20:31] LABS: PLATELET ESTIMATE NORMAL
[2024-09-19] MEDS: KCL 10MEQ/50ML PREMIX 150 ML IV PRN (20:55)
[2024-09-19] MEDS: FUROSEMIDE 100MG/10ML VIAL IVP NR (21:18)
[2024-09-20] VITALS (68 sets, daily range): BP systolic 115–164; BP diastolic 67–120; PULSE 80–122; RESP 17–43; TEMP 36.50292–37.28076; O2SAT 88–100
[2024-09-20] MEDS ORDERED: POTASSIUM CHLORIDE 20 MEQ in DEXT 5% WATER 90 ML IV ONE (00:15)
[2024-09-20] MEDS: ACETYLCYSTEINE 200MG/ML 20% VIAL 4ML INH SCH (00:22)
[2024-09-20] MEDS: KCL 20MEQ/100ML PREMIX 100 ML IV NR (00:52)
[2024-09-20] MEDS: ONDANSETRON HCL 4MG/2ML INJ IV PRN (04:34)
[2024-09-20 06:00] LABS: BASOPHILS % 0.1 % (0.0-2.0); HEMATOCRIT. 31.9 % (42.0-52.0); HEMOGLOBIN. 10.7 g/dL (14.0-18.0); LYMPHOCYTES % 7.7 % (20.0-50.0); MEAN CORPUSCULAR HEMOGLOBIN 31.9 pg (28.0-32.0); MEAN CORPUSCULAR HGB CONC 33.5 g/dL (31.0-37.0); MEAN CORPUSCULAR VOLUME 95.1 fL (80.0-94.0); MONOCYTES % 10.9 % (2.0-8.0); NEUTROPHILS % 81.3 % (40.0-76.0); PLATELET 274 x1000/uL (130-400); RED BLOOD CELL COUNT 3.35 mill/uL (4.7-6.1); RED CELL DISTRIBUTION WIDTH 14.1 % (11.6-14.6); WHITE BLOOD COUNT 20.8 x1000/uL (4.5-11.0)
[2024-09-20 06:16] LABS: CHLORIDE 104 mEq/L (98-107); POTASSIUM 3.7 mEq/L (3.5-5.1); SODIUM 142 mEq/L (136-145)
[2024-09-20 06:17] LABS: CALCIUM 8.5 mg/dL (8.7-10.4); CARBON DIOXIDE 29 mEq/L (21-32)
[2024-09-20 06:22] LABS: GLUCOSE 154 mg/dL (70-105); UREA NITROGEN BLOOD 20 mg/dL (9-23)
[2024-09-20 06:24] LABS: PHOSPHORUS 2.4 mg/dL (2.5-4.9)
[2024-09-20] MEDS: BUMETANIDE 2.5MG/10ML VIAL IV NR (07:39)
[2024-09-20] MEDS: KCL 20MEQ/100ML PREMIX 100 ML IV SCH (08:15)
[2024-09-20] MEDS: MAGNESIUM 4 G PREMIX 100 ML IV NR (08:55)
[2024-09-20] MEDS: METHYLPHENIDATE HCL 5MG TABLET PO SCH (09:00)
[2024-09-20] MEDS ORDERED: PHENYLEPHRINE 100 MG in DEXT 5% WATER 250 ML IV PRN (13:45)
[2024-09-20] MEDS ORDERED: EPINEPHRINE 10 MG in SODIUM CHLORIDE 0.9% 250 ML IV PRN (13:45)
[2024-09-20] MEDS: METOCLOPRAMIDE HCL 10MG/2ML VIAL IV SCH (13:53)
[2024-09-20] MEDS: BUMETANIDE 1MG/4ML VIAL IV NR (13:56)
[2024-09-20] MEDS: AMIODARONE 150MG/100ML D5W 100 ML IV NR (15:43)
[2024-09-20 17:12] LABS: BG BASE EXCESS 9.3 mmol/L (-2.0-3.0); BG CARBOXYHEMOGLOBIN 0.6 % (0.5-1.5); BG DEOXYHEMOGLOBIN 12.6 % (0.0-5.0); BG FRACTION INSPIRED OXYGEN 30; BG HCO3 ACT 31.2 mmol/L (21.0-28.0); BG METHEMOGLOBIN 0.3 % (0.5-1.5); BG OXYGEN SATURATION 87.3 % (94.0-98.0); BG OXYHEMOGLOBIN 86.5 % (94.0-98.0); BG PCO2 32.7 mmHg (35.0-48.0); BG PH 7.597 (7.350-7.450); BG PO2 49.3 mmHg (83.0-108.0); BG SAMPLE SITE ALINE; BG TOTAL HEMOGLOBIN 11.4 g/dL (13.5-17.5); BG VENT MODE HIGH FLOW
[2024-09-20 18:11] LABS: BG CARBOXYHEMOGLOBIN 0.7 % (0.5-1.5); BG DEOXYHEMOGLOBIN 11.6 % (0.0-5.0); BG FRACTION INSPIRED OXYGEN 30; BG HCO3 ACT 32.3 mmol/L (21.0-28.0); BG OXYGEN SATURATION 88.3 % (94.0-98.0); BG OXYHEMOGLOBIN 87.7 % (94.0-98.0); BG PCO2 34.9 mmHg (35.0-48.0); BG PH 7.584 (7.350-7.450); BG PO2 51.4 mmHg (83.0-108.0); BG SAMPLE SITE LEFT RADIAL; BG TOTAL HEMOGLOBIN 11.9 g/dL (13.5-17.5); BG VENT MODE HIGH FLOW
[2024-09-20 18:20] LABS: BASOPHILS % 0.1 % (0.0-2.0); HEMATOCRIT. 33.4 % (42.0-52.0); HEMOGLOBIN. 11.1 g/dL (14.0-18.0); LYMPHOCYTES % 10.1 % (20.0-50.0); MEAN CORPUSCULAR HEMOGLOBIN 31.5 pg (28.0-32.0); MEAN CORPUSCULAR HGB CONC 33.2 g/dL (31.0-37.0); MEAN CORPUSCULAR VOLUME 94.7 fL (80.0-94.0); MEAN PLATELET VOLUME 8.9 fl (7.4-10.4); MONOCYTES % 11.7 % (2.0-8.0); NEUTROPHILS % 78.1 % (40.0-76.0); PLATELET 318 x1000/uL (130-400); RED BLOOD CELL COUNT 3.53 mill/uL (4.7-6.1); RED CELL DISTRIBUTION WIDTH 14.3 % (11.6-14.6); WHITE BLOOD COUNT 22.4 x1000/uL (4.5-11.0)
[2024-09-20 18:30] LABS: CHLORIDE 99 mEq/L (98-107); POTASSIUM 3.3 mEq/L (3.5-5.1); SODIUM 142 mEq/L (136-145)
[2024-09-20 18:31] LABS: CALCIUM 8.3 mg/dL (8.7-10.4); CARBON DIOXIDE 28 mEq/L (21-32)
[2024-09-20 18:36] LABS: CREATININE 1.1 mg/dL (0.6-1.3); GLUCOSE 145 mg/dL (70-105); UREA NITROGEN BLOOD 21 mg/dL (9-23)
[2024-09-20 20:54] LABS: BG BASE EXCESS 8.4 mmol/L (-2.0-3.0); BG CARBOXYHEMOGLOBIN 0.1 % (0.5-1.5); BG DEOXYHEMOGLOBIN 3.7 % (0.0-5.0); BG FRACTION INSPIRED OXYGEN 80; BG HCO3 ACT 30.7 mmol/L (21.0-28.0); BG OXYGEN SATURATION 96.3 % (94.0-98.0); BG OXYHEMOGLOBIN 96.2 % (94.0-98.0); BG PCO2 34.8 mmHg (35.0-48.0); BG PH 7.564 (7.350-7.450); BG PO2 81.6 mmHg (83.0-108.0); BG SAMPLE SITE RIGHT RADIAL; BG TOTAL HEMOGLOBIN 12.6 g/dL (13.5-17.5); BG VENT MODE HIGH FLOW
[2024-09-20] MEDS: HALOPERIDOL LACTATE 5MG/ML VIAL IM PRN (21:05)
[2024-09-20] MEDS: FUROSEMIDE 100MG/10ML VIAL IVP NR (21:35)
[2024-09-20] MEDS: KCL 10MEQ/50ML PREMIX 50 ML IV SCH (22:22)
[2024-09-21] VITALS (49 sets, daily range): BP systolic 121–165; BP diastolic 69–133; PULSE 80–110; RESP 18–50; TEMP 36.61404–37.11408; O2SAT 82–99
[2024-09-21] MEDS ORDERED: MIRT7.5T11 PO (02:55)
[2024-09-21] MEDS ORDERED: PRED10TA PO (02:55)
[2024-09-21] MEDS ORDERED: AMLO2.5T45 PO (02:55)
[2024-09-21] MEDS ORDERED: CARI350T27 PO (02:55)
[2024-09-21] MEDS ORDERED: LOSA25TA26 PO (02:55)
[2024-09-21] MEDS ORDERED: METH4TAB95 PO (02:55)
[2024-09-21 06:52] LABS: CHLORIDE 99 mEq/L (98-107); POTASSIUM 3.3 mEq/L (3.5-5.1); SODIUM 140 mEq/L (136-145)
[2024-09-21 06:53] LABS: CALCIUM 8.2 mg/dL (8.7-10.4); CARBON DIOXIDE 33 mEq/L (21-32)
[2024-09-21 06:58] LABS: GLUCOSE 178 mg/dL (70-105); UREA NITROGEN BLOOD 22 mg/dL (9-23)
[2024-09-21 07:00] LABS: PHOSPHORUS 2.3 mg/dL (2.5-4.9)
[2024-09-21 07:01] LABS: HEMATOCRIT. 32.7 % (42.0-52.0); HEMOGLOBIN. 11.1 g/dL (14.0-18.0); MEAN CORPUSCULAR HGB CONC 33.8 g/dL (31.0-37.0); MEAN CORPUSCULAR VOLUME 94.5 fL (80.0-94.0); MEAN PLATELET VOLUME 8.8 fl (7.4-10.4); PLATELET 315 x1000/uL (130-400); RED BLOOD CELL COUNT 3.46 mill/uL (4.7-6.1); RED CELL DISTRIBUTION WIDTH 14.1 % (11.6-14.6)
[2024-09-21 07:54] LABS: DIFFERENTIAL COMMENT 1
[2024-09-21] MEDS ORDERED: MAGNESIUM 2 G PREMIX 50 ML IV ONE (08:00)
[2024-09-21] MEDS: KCL 20MEQ/100ML PREMIX 100 ML IV SCH (09:57)
[2024-09-21] MEDS: METOLAZONE 5MG TABLET PO NR (09:57)
[2024-09-21] MEDS: BUMETANIDE 2.5MG/10ML VIAL IV NR (09:58)
[2024-09-21 11:17] LABS: BG BASE EXCESS 11.7 mmol/L (-2.0-3.0); BG CARBOXYHEMOGLOBIN 0.2 % (0.5-1.5); BG DEOXYHEMOGLOBIN 7.9 % (0.0-5.0); BG FRACTION INSPIRED OXYGEN 60; BG HCO3 ACT 35.2 mmol/L (21.0-28.0); BG OXYGEN SATURATION 92.1 % (94.0-98.0); BG OXYHEMOGLOBIN 91.9 % (94.0-98.0); BG PCO2 41.4 mmHg (35.0-48.0); BG PH 7.548 (7.350-7.450); BG PO2 60.3 mmHg (83.0-108.0); BG SAMPLE SITE RIGHT RADIAL; BG TOTAL HEMOGLOBIN 12.2 g/dL (13.5-17.5); BG VENT MODE HIGH FLOW
[2024-09-21 14:29] LABS: PLATELET ESTIMATE NORMAL
[2024-09-21] MEDS: DEXT 5% IV NR (17:45)
[2024-09-21] MEDS: POTASSIUM PHOSPHATE IV NR (17:45)
[2024-09-21] MEDS: WATER IV NR (17:45)
[2024-09-22] VITALS (53 sets, daily range): BP systolic 132–169; BP diastolic 68–104; PULSE 80–100; RESP 17–48; TEMP 36.50292–37.7808; O2SAT 84–100
[2024-09-22 06:45] LABS: HEMATOCRIT. 34.5 % (42.0-52.0); HEMOGLOBIN. 11.5 g/dL (14.0-18.0); MEAN CORPUSCULAR HEMOGLOBIN 31.7 pg (28.0-32.0); MEAN CORPUSCULAR HGB CONC 33.5 g/dL (31.0-37.0); MEAN CORPUSCULAR VOLUME 94.8 fL (80.0-94.0); MEAN PLATELET VOLUME 8.8 fl (7.4-10.4); PLATELET 376 x1000/uL (130-400); RED BLOOD CELL COUNT 3.64 mill/uL (4.7-6.1); RED CELL DISTRIBUTION WIDTH 14.4 % (11.6-14.6); WHITE BLOOD COUNT 26.9 x1000/uL (4.5-11.0)
[2024-09-22 07:05] LABS: CARBON DIOXIDE 37 mEq/L (21-32); CHLORIDE 96 mEq/L (98-107); POTASSIUM 2.9 mEq/L (3.5-5.1); SODIUM 141 mEq/L (136-145)
[2024-09-22 07:06] LABS: CALCIUM 8.2 mg/dL (8.7-10.4)
[2024-09-22 07:10] LABS: CREATININE 1.1 mg/dL (0.6-1.3); DIFFERENTIAL COMMENT 1
[2024-09-22 07:11] LABS: GLUCOSE 183 mg/dL (70-105); UREA NITROGEN BLOOD 24 mg/dL (9-23)
[2024-09-22] MEDS: KCL 20MEQ/100ML PREMIX 100 ML IV SCH ×2 (07:50→13:23)
[2024-09-22] MEDS: FUROSEMIDE 100MG/10ML VIAL IVP NR (07:54)
[2024-09-22 08:33] LABS: ANISOCYTOSIS 1+; PLATELET ESTIMATE NORMAL
[2024-09-22 09:28] LABS: BG BASE EXCESS 14.1 mmol/L (-2.0-3.0); BG CARBOXYHEMOGLOBIN 0.3 % (0.5-1.5); BG DEOXYHEMOGLOBIN 6.3 % (0.0-5.0); BG FRACTION INSPIRED OXYGEN 80; BG HCO3 ACT 37.8 mmol/L (21.0-28.0); BG METHEMOGLOBIN 0.3 % (0.5-1.5); BG OXYGEN SATURATION 93.7 % (94.0-98.0); BG OXYHEMOGLOBIN 93.1 % (94.0-98.0); BG PCO2 43.1 mmHg (35.0-48.0); BG PH 7.561 (7.350-7.450); BG PO2 63.8 mmHg (83.0-108.0); BG SAMPLE SITE RIGHT RADIAL; BG TOTAL HEMOGLOBIN 12.5 g/dL (13.5-17.5); BG VENT MODE HIGH FLOW
[2024-09-22] MEDS: MAGNESIUM 2 G PREMIX 50 ML IV NR (09:42)
[2024-09-22] MEDS: PIPERACILLIN/TAZO 3.375G/100ML 100 ML IV SCH (13:39)
[2024-09-22 23:43] LABS: POTASSIUM 2.8 mEq/L (3.5-5.1)
[2024-09-23] VITALS (39 sets, daily range): BP systolic 127–186; BP diastolic 64–100; PULSE 78–105; RESP 17–47; TEMP 36.61404–37.66968; O2SAT 93–99
[2024-09-23] MEDS ORDERED: POTASSIUM CHLORIDE 40 MEQ in DEXT 5% WATER 230 ML IV ONE ×2 (05:45→13:30)
[2024-09-23] MEDS: KCL 20MEQ/100ML X 2 FOR TOTAL KCL 40MEQ/200ML IV SCH ×2 (06:27→14:09)
[2024-09-23] MEDS: PANTOPRAZOLE SODIUM 40 MG/VIAL IV SCH (08:33)
[2024-09-23 09:24] LABS: BG BASE EXCESS 15.8 mmol/L (-2.0-3.0); BG CARBOXYHEMOGLOBIN 0.8 % (0.5-1.5); BG DEOXYHEMOGLOBIN 4.1 % (0.0-5.0); BG FRACTION INSPIRED OXYGEN 90; BG HCO3 ACT 39.8 mmol/L (21.0-28.0); BG METHEMOGLOBIN 0.1 % (0.5-1.5); BG OXYGEN SATURATION 95.9 % (94.0-98.0); BG PCO2 45.4 mmHg (35.0-48.0); BG PH 7.561 (7.350-7.450); BG PO2 73.6 mmHg (83.0-108.0); BG SAMPLE SITE LEFT RADIAL; BG TOTAL HEMOGLOBIN 12.6 g/dL (13.5-17.5); BG VENT MODE HIGH FLOW
[2024-09-23 11:30] LABS: HEMATOCRIT. 34.7 % (42.0-52.0); HEMOGLOBIN. 11.8 g/dL (14.0-18.0); MEAN CORPUSCULAR HEMOGLOBIN 32.3 pg (28.0-32.0); MEAN CORPUSCULAR VOLUME 95.1 fL (80.0-94.0); MEAN PLATELET VOLUME 8.8 fl (7.4-10.4); PLATELET 432 x1000/uL (130-400); RED BLOOD CELL COUNT 3.65 mill/uL (4.7-6.1); RED CELL DISTRIBUTION WIDTH 14.4 % (11.6-14.6); WHITE BLOOD COUNT 32.3 x1000/uL (4.5-11.0)
[2024-09-23 11:31] LABS: CHLORIDE 95 mEq/L (98-107); SODIUM 142 mEq/L (136-145)
[2024-09-23 11:32] LABS: CALCIUM 8.3 mg/dL (8.7-10.4); CARBON DIOXIDE 37 mEq/L (21-32)
[2024-09-23 11:33] LABS: DIFFERENTIAL COMMENT 1
[2024-09-23 11:37] LABS: CREATININE 1.2 mg/dL (0.6-1.3); GLUCOSE 123 mg/dL (70-105); UREA NITROGEN BLOOD 25 mg/dL (9-23)
[2024-09-23] MEDS: METOPROLOL TARTRATE 25MG TABLET PO SCH (14:08)
[2024-09-23 20:21] LABS: PLATELET ESTIMATE INCREASED
[2024-09-24] VITALS (16 sets, daily range): BP systolic 103–143; BP diastolic 72–97; PULSE 76–105; RESP 17–39; TEMP 36.89184–37.44744; O2SAT 95–99
[2024-09-24 06:23] LABS: CALCIUM 8.3 mg/dL (8.7-10.4); CARBON DIOXIDE 33 mEq/L (21-32); CHLORIDE 98 mEq/L (98-107); HEMATOCRIT. 33.9 % (42.0-52.0); HEMOGLOBIN. 11.5 g/dL (14.0-18.0); MEAN CORPUSCULAR HEMOGLOBIN 32.5 pg (28.0-32.0); MEAN CORPUSCULAR HGB CONC 33.8 g/dL (31.0-37.0); MEAN CORPUSCULAR VOLUME 96.2 fL (80.0-94.0); MEAN PLATELET VOLUME 9.1 fl (7.4-10.4); PLATELET 411 x1000/uL (130-400); RED BLOOD CELL COUNT 3.52 mill/uL (4.7-6.1); RED CELL DISTRIBUTION WIDTH 14.5 % (11.6-14.6); SODIUM 146 mEq/L (136-145); WHITE BLOOD COUNT 29.6 x1000/uL (4.5-11.0)
[2024-09-24 06:28] LABS: CREATININE 1.2 mg/dL (0.6-1.3)
[2024-09-24 06:29] LABS: GLUCOSE 121 mg/dL (70-105); UREA NITROGEN BLOOD 28 mg/dL (9-23)
[2024-09-24 06:31] LABS: PHOSPHORUS 3.8 mg/dL (2.5-4.9)
[2024-09-24 07:00] LABS: DIFFERENTIAL COMMENT 1
[2024-09-24 08:02] LABS: POTASSIUM 2.7 mEq/L (3.5-5.1)
[2024-09-24] MEDS ORDERED: POTASSIUM CHLORIDE 40 MEQ in DEXT 5% WATER 230 ML IV ONE (08:15)
[2024-09-24 08:24] LABS: BG BASE EXCESS 14.7 mmol/L (-2.0-3.0); BG CARBOXYHEMOGLOBIN 0.4 % (0.5-1.5); BG DEOXYHEMOGLOBIN 1.1 % (0.0-5.0); BG FRACTION INSPIRED OXYGEN 90; BG HCO3 ACT 37.8 mmol/L (21.0-28.0); BG OXYGEN SATURATION 98.9 % (94.0-98.0); BG OXYHEMOGLOBIN 98.5 % (94.0-98.0); BG PCO2 40.7 mmHg (35.0-48.0); BG PH 7.586 (7.350-7.450); BG PO2 112.9 mmHg (83.0-108.0); BG SAMPLE SITE RIGHT RADIAL; BG TOTAL HEMOGLOBIN 11.7 g/dL (13.5-17.5); BG VENT MODE HIGH FLOW
[2024-09-24] MEDS: KCL 20MEQ/100ML PREMIX 100 ML IV SCH (11:52)
[2024-09-24] MEDS: KCL 20MEQ/100ML X 2 FOR TOTAL KCL 40MEQ/200ML IV SCH (11:52)
[2024-09-24] MEDS: DEXT 5%/0.9% NACL 1,000 ML IV SCH (12:04)
[2024-09-24] MEDS: MAGNESIUM 2 G PREMIX 50 ML IV NR (12:29)
[2024-09-24 16:35] LABS: PLATELET ESTIMATE SLIGHTLY INCREASED
[2024-09-25] VITALS (18 sets, daily range): BP systolic 83–131; BP diastolic 38–97; PULSE 70–100; RESP 11–40; TEMP 36.16956–37.33632; O2SAT 87–100
[2024-09-25] MEDS ORDERED: POTASSIUM CHLORIDE 40 MEQ in DEXT 5% WATER 230 ML IV ONE (07:15)
[2024-09-25 08:08] LABS: CARBON DIOXIDE 34 mEq/L (21-32); CHLORIDE 101 mEq/L (98-107); SODIUM 144 mEq/L (136-145)
[2024-09-25 08:09] LABS: CALCIUM 8.1 mg/dL (8.7-10.4)
[2024-09-25 08:14] LABS: GLUCOSE 152 mg/dL (70-105); UREA NITROGEN BLOOD 25 mg/dL (9-23)
[2024-09-25 08:17] LABS: HEMATOCRIT. 33.7 % (42.0-52.0); HEMOGLOBIN. 11.1 g/dL (14.0-18.0); MEAN CORPUSCULAR HEMOGLOBIN 31.6 pg (28.0-32.0); MEAN CORPUSCULAR HGB CONC 32.8 g/dL (31.0-37.0); MEAN CORPUSCULAR VOLUME 96.2 fL (80.0-94.0); MEAN PLATELET VOLUME 9.2 fl (7.4-10.4); PLATELET 435 x1000/uL (130-400); RED CELL DISTRIBUTION WIDTH 14.3 % (11.6-14.6); WHITE BLOOD COUNT 21.9 x1000/uL (4.5-11.0)
[2024-09-25 08:43] LABS: DIFFERENTIAL COMMENT 1
[2024-09-25 10:15] LABS: POTASSIUM 2.7 mEq/L (3.5-5.1)
[2024-09-25] MEDS: KCL 20MEQ/100ML X 2 FOR TOTAL KCL 40MEQ/200ML IV SCH (10:48)
[2024-09-25] MEDS: POTASSIUM CHLORIDE 20MEQ/PACKET PO NR (10:56)
[2024-09-25] MEDS: KCL 20MEQ/100ML PREMIX 100 ML IV SCH ×2 (12:00→20:11)
[2024-09-25] MEDS: METOLAZONE 5MG TABLET PO NR (13:15)
[2024-09-25] MEDS: PIPERACILLIN/TAZO 3.375G/50ML 50 ML IV SCH (14:00)
[2024-09-25] MEDS: KCL 20MEQ/100ML PREMIX 100 ML IV NR (14:00)
[2024-09-25] MEDS: MAGNESIUM 2 G PREMIX 50 ML IV NR (15:00)
[2024-09-25] MEDS: FUROSEMIDE 40MG/4ML VIAL IVP NR (15:00)
[2024-09-25 16:23] LABS: LACTIC ACID 2.2 mmol/L (0.4-2.0)
[2024-09-25 18:35] LABS: BG BASE EXCESS 9.1 mmol/L (-2.0-3.0); BG CARBOXYHEMOGLOBIN 0.8 % (0.5-1.5); BG DEOXYHEMOGLOBIN 14.5 % (0.0-5.0); BG FRACTION INSPIRED OXYGEN 21; BG HCO3 ACT 31.2 mmol/L (21.0-28.0); BG METHEMOGLOBIN 0.3 % (0.5-1.5); BG OXYGEN SATURATION 85.3 % (94.0-98.0); BG OXYHEMOGLOBIN 84.4 % (94.0-98.0); BG PCO2 33.7 mmHg (35.0-48.0); BG PH 7.584 (7.350-7.450); BG PO2 45.4 mmHg (83.0-108.0); BG SAMPLE SITE RIGHT BRACHIAL; BG TOTAL HEMOGLOBIN 11.5 g/dL (13.5-17.5); BG VENT MODE ROOM AIR
[2024-09-25 20:42] LABS: PLATELET ESTIMATE INCREASED
[2024-09-26] VITALS (17 sets, daily range): BP systolic 102–135; BP diastolic 62–94; PULSE 71–94; RESP 18–41; TEMP 36.22512–37.44744; O2SAT 90–100
[2024-09-26] MEDS: AMIODARONE HCL 450 MG in DEXT 5% WATER 241 ML IV SCH (00:57)
[2024-09-26 05:44] LABS: BASOPHILS % 0.5 % (0.0-2.0); EOSINOPHILS % 0.9 % (0.0-5.0); HEMATOCRIT. 32.1 % (42.0-52.0); HEMOGLOBIN. 10.8 g/dL (14.0-18.0); LYMPHOCYTES % 7.1 % (20.0-50.0); MEAN CORPUSCULAR HEMOGLOBIN 31.7 pg (28.0-32.0); MEAN CORPUSCULAR HGB CONC 33.5 g/dL (31.0-37.0); MEAN CORPUSCULAR VOLUME 94.7 fL (80.0-94.0); MEAN PLATELET VOLUME 9.2 fl (7.4-10.4); MONOCYTES % 7.2 % (2.0-8.0); NEUTROPHILS % 84.3 % (40.0-76.0); PLATELET 484 x1000/uL (130-400); RED BLOOD CELL COUNT 3.39 mill/uL (4.7-6.1); RED CELL DISTRIBUTION WIDTH 14.2 % (11.6-14.6); WHITE BLOOD COUNT 19.1 x1000/uL (4.5-11.0)
[2024-09-26 05:45] LABS: CHLORIDE 100 mEq/L (98-107); POTASSIUM 2.9 mEq/L (3.5-5.1); SODIUM 141 mEq/L (136-145)
[2024-09-26 05:46] LABS: CARBON DIOXIDE 33 mEq/L (21-32)
[2024-09-26 05:51] LABS: CREATININE 0.9 mg/dL (0.6-1.3); GLUCOSE 111 mg/dL (70-105)
[2024-09-26 05:52] LABS: UREA NITROGEN BLOOD 26 mg/dL (9-23)
[2024-09-26 05:54] LABS: PHOSPHORUS 2.9 mg/dL (2.5-4.9)
[2024-09-26] MEDS: QUETIAPINE FUMARATE 50MG TABLET PO SCH (09:00)
[2024-09-26 11:14] LABS: BG BASE EXCESS 7.9 mmol/L (-2.0-3.0); BG CARBOXYHEMOGLOBIN 0.6 % (0.5-1.5); BG DEOXYHEMOGLOBIN 6.3 % (0.0-5.0); BG FRACTION INSPIRED OXYGEN 50; BG HCO3 ACT 31.2 mmol/L (21.0-28.0); BG METHEMOGLOBIN 0.3 % (0.5-1.5); BG OXYGEN SATURATION 93.6 % (94.0-98.0); BG OXYHEMOGLOBIN 92.8 % (94.0-98.0); BG PCO2 38.7 mmHg (35.0-48.0); BG PH 7.525 (7.350-7.450); BG PO2 69.4 mmHg (83.0-108.0); BG SAMPLE SITE RIGHT RADIAL; BG TOTAL HEMOGLOBIN 10.2 g/dL (13.5-17.5); BG VENT MODE HIGH FLOW
[2024-09-26] MEDS: POTASSIUM CHLORIDE 20MEQ/PACKET PO NR (11:22)
[2024-09-26] MEDS: HALOPERIDOL LACTATE 5MG/ML VIAL IM PRN (11:23)
[2024-09-26] MEDS: MAGNESIUM 2 G PREMIX 50 ML IV NR (11:25)
[2024-09-26 13:24] LABS: POTASSIUM 3.1 mEq/L (3.5-5.1)
[2024-09-26] MEDS: POTASSIUM CHLORIDE 20MEQ TABLET SR PO NR (21:31)
[2024-09-27] VITALS (18 sets, daily range): BP systolic 92–124; BP diastolic 48–78; PULSE 63–89; RESP 14–37; TEMP 36.3918–37.503; O2SAT 70–100
[2024-09-27 08:04] LABS: BASOPHILS % 0.4 % (0.0-2.0); EOSINOPHILS % 1.5 % (0.0-5.0); HEMATOCRIT. 30.2 % (42.0-52.0); HEMOGLOBIN. 10.3 g/dL (14.0-18.0); LYMPHOCYTES % 10.1 % (20.0-50.0); MEAN CORPUSCULAR HEMOGLOBIN 32.7 pg (28.0-32.0); MEAN CORPUSCULAR HGB CONC 34.2 g/dL (31.0-37.0); MEAN CORPUSCULAR VOLUME 95.7 fL (80.0-94.0); MEAN PLATELET VOLUME 9.4 fl (7.4-10.4); MONOCYTES % 7.8 % (2.0-8.0); NEUTROPHILS % 80.2 % (40.0-76.0); PLATELET 470 x1000/uL (130-400); RED BLOOD CELL COUNT 3.16 mill/uL (4.7-6.1); RED CELL DISTRIBUTION WIDTH 14.4 % (11.6-14.6); WHITE BLOOD COUNT 16.3 x1000/uL (4.5-11.0)
[2024-09-27 08:10] LABS: CARBON DIOXIDE 30 mEq/L (21-32); CHLORIDE 103 mEq/L (98-107); POTASSIUM 3.6 mEq/L (3.5-5.1); SODIUM 141 mEq/L (136-145)
[2024-09-27 08:11] LABS: CALCIUM 7.8 mg/dL (8.7-10.4)
[2024-09-27 08:16] LABS: GLUCOSE 132 mg/dL (70-105); UREA NITROGEN BLOOD 22 mg/dL (9-23)
[2024-09-27] MEDS: QUETIAPINE FUMARATE 50MG TABLET PO SCH (09:25)
[2024-09-27 11:19] LABS: BG BASE EXCESS 3.5 mmol/L (-2.0-3.0); BG CARBOXYHEMOGLOBIN 0.1 % (0.5-1.5); BG METHEMOGLOBIN 0.3 % (0.5-1.5); BG OXYHEMOGLOBIN 95.6 % (94.0-98.0); BG PCO2 32.1 mmHg (35.0-48.0); BG PH 7.526 (7.350-7.450); BG PO2 80.3 mmHg (83.0-108.0); BG TOTAL HEMOGLOBIN 11.3 g/dL (13.5-17.5)
[2024-09-27] MEDS: ACETAZOLAMIDE 500MG ER CAPSULE PO NR (12:47)
[2024-09-27] MEDS ORDERED: MAGNESIUM 4 G PREMIX 100 ML IV NR (17:30)
[2024-09-27] MEDS ORDERED: CALCIUM GLUCONATE 1GM PREMIX 50 ML IV SCH (18:00)
[2024-09-27] MEDS: KCL 20MEQ/100ML PREMIX 100 ML IV SCH (18:12)
[2024-09-28] VITALS (84 sets, daily range): BP systolic 63–144; BP diastolic 26–115; PULSE 64–93; RESP 12–53; TEMP 36.33624–37.72524; O2SAT 93–100
[2024-09-28] MEDS: MIDAZOLAM HCL 2 MG/2 ML VIAL IV NR (04:38)
[2024-09-28] MEDS: PROPOFOL 10MG/ML 100ML 100 ML IV PRN (05:25)
[2024-09-28] MEDS: NOREPINEPHRINE 8MG/250ML PMX 250 ML IV PRN (05:26)
[2024-09-28 07:08] LABS: BASOPHILS % 0.7 % (0.0-2.0); DIFFERENTIAL COMMENT 0; EOSINOPHILS % 1.2 % (0.0-5.0); HEMATOCRIT. 30.7 % (42.0-52.0); HEMOGLOBIN. 9.7 g/dL (14.0-18.0); LYMPHOCYTES % 13.9 % (20.0-50.0); MEAN CORPUSCULAR HEMOGLOBIN 31.9 pg (28.0-32.0); MEAN CORPUSCULAR HGB CONC 31.6 g/dL (31.0-37.0); MEAN CORPUSCULAR VOLUME 100.9 fL (80.0-94.0); MEAN PLATELET VOLUME 9.9 fl (7.4-10.4); MONOCYTES % 7.5 % (2.0-8.0); NEUTROPHILS % 76.7 % (40.0-76.0); PLATELET 524 x1000/uL (130-400); RED BLOOD CELL COUNT 3.05 mill/uL (4.7-6.1); RED CELL DISTRIBUTION WIDTH 15.2 % (11.6-14.6); WHITE BLOOD COUNT 23.4 x1000/uL (4.5-11.0)
[2024-09-28 07:23] LABS: POTASSIUM 3.8 mEq/L (3.5-5.1)
[2024-09-28 07:24] LABS: CALCIUM 8.1 mg/dL (8.7-10.4)
[2024-09-28 07:29] LABS: CREATININE 1.2 mg/dL (0.6-1.3)
[2024-09-28] MEDS: PIPERACILLIN/TAZO 3.375G/50ML 50 ML IV SCH (08:41)
[2024-09-28 08:57] LABS: BG BASE EXCESS -2.2 mmol/L (-2.0-3.0); BG CARBOXYHEMOGLOBIN 0.1 % (0.5-1.5); BG DEOXYHEMOGLOBIN 1.1 % (0.0-5.0); BG FRACTION INSPIRED OXYGEN 100; BG HCO3 ACT 21.7 mmol/L (21.0-28.0); BG METHEMOGLOBIN 0.3 % (0.5-1.5); BG OXYGEN SATURATION 98.9 % (94.0-98.0); BG OXYHEMOGLOBIN 98.5 % (94.0-98.0); BG PCO2 33.9 mmHg (35.0-48.0); BG PH 7.424 (7.350-7.450); BG PO2 166.1 mmHg (83.0-108.0); BG SAMPLE SITE RIGHT BRACHIAL; BG TOTAL HEMOGLOBIN 9.8 g/dL (13.5-17.5); BG TOTAL RESPIRATORY RATE 28 b/min; BG VENT MODE VENT - AC
[2024-09-28] MEDS ORDERED: LIDOCAINE HCL 1% 10 MG/ML 10ML VIAL ONE (09:14)
[2024-09-28] MEDS: VANCOMYCIN 1.25GM PMX (XELLIA) 250 ML IV SCH (09:40)
[2024-09-28 11:47] LABS: BG BASE EXCESS -1.1 mmol/L (-2.0-3.0); BG CARBOXYHEMOGLOBIN 0.3 % (0.5-1.5); BG DEOXYHEMOGLOBIN 1.2 % (0.0-5.0); BG FRACTION INSPIRED OXYGEN 50; BG METHEMOGLOBIN 0.3 % (0.5-1.5); BG OXYGEN SATURATION 98.8 % (94.0-98.0); BG OXYHEMOGLOBIN 98.2 % (94.0-98.0); BG PCO2 30.9 mmHg (35.0-48.0); BG SAMPLE SITE RIGHT RADIAL; BG TOTAL HEMOGLOBIN 9.8 g/dL (13.5-17.5); BG VENT MODE VENT - AC
[2024-09-28 12:55] LABS: LACTIC ACID 6.2 mmol/L (0.4-2.0)
[2024-09-28 12:57] LABS: PHOSPHORUS 6.2 mg/dL (2.5-4.9)
[2024-09-28] MEDS: MIDODRINE HCL 5MG TABLET PO SCH (13:07)
[2024-09-28] MEDS: CALCIUM GLUCONATE 1GM PREMIX 50 ML IV SCH (13:21)
[2024-09-28 13:41] LABS: POTASSIUM 4.2 mEq/L (3.5-5.1)
[2024-09-28 13:42] LABS: CALCIUM 7.8 mg/dL (8.7-10.4)
[2024-09-28 13:47] LABS: CREATININE 1.4 mg/dL (0.6-1.3)
[2024-09-28 13:49] LABS: ALBUMIN 2.9 g/dL (3.2-4.8)
[2024-09-28 13:52] LABS: THYROID STIMULATING HORMONE 9.36 uIU/mL (0.55-4.78)
[2024-09-28] MEDS: NOREPINEPHRINE 32 MG in DEXT 5% WATER 218 ML IV PRN (15:19)
[2024-09-28 16:10] LABS: BG BASE EXCESS -1.9 mmol/L (-2.0-3.0); BG CARBOXYHEMOGLOBIN 0.1 % (0.5-1.5); BG DEOXYHEMOGLOBIN 1.9 % (0.0-5.0); BG FRACTION INSPIRED OXYGEN 50; BG HCO3 ACT 21.1 mmol/L (21.0-28.0); BG OXYGEN SATURATION 98.1 % (94.0-98.0); BG PCO2 29.5 mmHg (35.0-48.0); BG PH 7.472 (7.350-7.450); BG PO2 112.7 mmHg (83.0-108.0); BG SAMPLE SITE RIGHT RADIAL; BG TOTAL HEMOGLOBIN 9.7 g/dL (13.5-17.5); BG TOTAL RESPIRATORY RATE 27 b/min; BG VENT MODE VENT - AC
[2024-09-28] MEDS: DEXT 5%/0.45% NACL 1000ML 1,000 ML IV ONE (18:51)
[2024-09-28 21:00] LABS: HEMATOCRIT. 34.1 % (42.0-52.0); HEMOGLOBIN. 10.3 g/dL (14.0-18.0); MEAN CORPUSCULAR HGB CONC 30.1 g/dL (31.0-37.0); MEAN CORPUSCULAR VOLUME 106.4 fL (80.0-94.0); PLATELET 541 x1000/uL (130-400); RED BLOOD CELL COUNT 3.21 mill/uL (4.7-6.1); RED CELL DISTRIBUTION WIDTH 15.6 % (11.6-14.6); WHITE BLOOD COUNT 35.8 x1000/uL (4.5-11.0)
[2024-09-28 21:09] LABS: DIFFERENTIAL COMMENT 1
[2024-09-28 21:46] LABS: ANISOCYTOSIS 1+; GIANT PLATELETS FEW; PLATELET ESTIMATE INCREASED
[2024-09-28] MEDS: SODIUM CHLORIDE 0.9% 500 ML IV ONE (23:39)
[2024-09-28] MEDS ORDERED: DEXT 5%/0.45% NACL 1000ML 1,000 ML IV SCH (23:45)
[2024-09-29] VITALS (98 sets, daily range): BP systolic 81–123; BP diastolic 56–75; PULSE 80–91; RESP 18–52; TEMP 36.61404–37.61412; O2SAT 90–100
[2024-09-29] MEDS: MORPHINE SULFATE 2 MG/ML INJ (NOT FOR IM USE) IV NR (01:15)
[2024-09-29] MEDS: MIDAZOLAM 100MG/100ML PMX 100 ML IV PRN (01:51)
[2024-09-29] MEDS: PROPOFOL 10MG/ML 100ML 100 ML IV PRN (06:34)
[2024-09-29 06:43] LABS: POTASSIUM 5.6 mEq/L (3.5-5.1)
[2024-09-29 06:44] LABS: HEMATOCRIT. 27.7 % (42.0-52.0); HEMOGLOBIN. 8.9 g/dL (14.0-18.0); MEAN CORPUSCULAR HEMOGLOBIN 32.1 pg (28.0-32.0); MEAN CORPUSCULAR HGB CONC 32.2 g/dL (31.0-37.0); MEAN CORPUSCULAR VOLUME 99.5 fL (80.0-94.0); MEAN PLATELET VOLUME 9.7 fl (7.4-10.4); PLATELET 522 x1000/uL (130-400); RED BLOOD CELL COUNT 2.79 mill/uL (4.7-6.1); RED CELL DISTRIBUTION WIDTH 15.2 % (11.6-14.6); WHITE BLOOD COUNT 27.9 x1000/uL (4.5-11.0)
[2024-09-29 06:45] LABS: CALCIUM 7.4 mg/dL (8.7-10.4)
[2024-09-29 06:53] LABS: CREATININE 3.1 mg/dL (0.6-1.3)
[2024-09-29 07:06] LABS: DIFFERENTIAL COMMENT 1
[2024-09-29] MEDS: VANCOMYCIN 1G PREMIX 200 ML IV SCH (08:19)
[2024-09-29] MEDS: SODIUM POLYSTYRENE SULFONATE 15 G/60 ML BOT PO NR (08:21)
[2024-09-29] MEDS: SODIUM BICARBONATE 8.4% 50MEQ/50ML SYR IV NR (08:22)
[2024-09-29 08:44] LABS: PLATELET ESTIMATE INCREASED
[2024-09-29 08:48] LABS: POTASSIUM 5.7 mEq/L (3.5-5.1)
[2024-09-29 08:50] LABS: CALCIUM 7.6 mg/dL (8.7-10.4)
[2024-09-29 08:54] LABS: CREATININE 2.9 mg/dL (0.6-1.3)
[2024-09-29] MEDS ORDERED: HEPARIN 5000 UNITS/ML VIAL IV PRN ×2 (09:00)
[2024-09-29] MEDS ORDERED: HEPARIN 25,000 UNITS PREMIX 250 ML IV PRN (09:00)
[2024-09-29] MEDS ORDERED: HEPARIN 5000 UNITS/ML VIAL IV SCH (09:00)
[2024-09-29 09:19] LABS: LACTIC ACID 6.2 mmol/L (0.4-2.0)
[2024-09-29 09:23] LABS: BG BASE EXCESS -7.6 mmol/L (-2.0-3.0); BG CARBOXYHEMOGLOBIN 0.3 % (0.5-1.5); BG DEOXYHEMOGLOBIN 5.3 % (0.0-5.0); BG FRACTION INSPIRED OXYGEN 30; BG HCO3 ACT 17.5 mmol/L (21.0-28.0); BG METHEMOGLOBIN 0.3 % (0.5-1.5); BG OXYGEN SATURATION 94.7 % (94.0-98.0); BG OXYHEMOGLOBIN 94.1 % (94.0-98.0); BG PH 7.329 (7.350-7.450); BG PO2 85.2 mmHg (83.0-108.0); BG SAMPLE SITE RIGHT BRACHIAL; BG TOTAL HEMOGLOBIN 9.7 g/dL (13.5-17.5); BG VENT MODE VENT - AC
[2024-09-29] MEDS ORDERED: HEPARIN BOLUS PRN aPTT <30 IV (09:45)
[2024-09-29 09:59] LABS: INR 1.4; PARTIAL THROMBOPLASTIN TIME 32.5 sec (23.4-31.0); PROTHROMBIN TIME 15.1 sec (9.6-11.0)
[2024-09-29] MEDS: FUROSEMIDE 40MG/4ML VIAL IVP NR (10:43)
[2024-09-29] MEDS: HEPARIN 60 UNITS/KG BOLUS IV NR (10:51)
[2024-09-29] MEDS: HEPARIN 25,000 UNITS PREMIX 250 ML IV SCH (10:52)
[2024-09-29 11:09] LABS: TROPONIN I HIGH SENSITIVITY 411 ng/L (3.0-53)
[2024-09-29] MEDS: SODIUM BICARBONATE 100 MEQ in DEXTROSE 5% WATER 900 ML IV SCH (12:05)
[2024-09-29 16:08] LABS: HEMOGLOBIN. 7.8 g/dL (14.0-18.0); MEAN CORPUSCULAR HEMOGLOBIN 30.8 pg (28.0-32.0); MEAN CORPUSCULAR HGB CONC 31.3 g/dL (31.0-37.0); MEAN CORPUSCULAR VOLUME 98.2 fL (80.0-94.0); PLATELET 436 x1000/uL (130-400); RED BLOOD CELL COUNT 2.54 mill/uL (4.7-6.1); RED CELL DISTRIBUTION WIDTH 14.9 % (11.6-14.6)
[2024-09-29 16:10] LABS: POTASSIUM 5.3 mEq/L (3.5-5.1)
[2024-09-29 16:13] LABS: DIFFERENTIAL COMMENT 1; WHITE BLOOD COUNT 41.4 x1000/uL (4.5-11.0)
[2024-09-29 16:31] LABS: PLATELET ESTIMATE INCREASED
[2024-09-29 16:57] LABS: BG BASE EXCESS -6.9 mmol/L (-2.0-3.0); BG CARBOXYHEMOGLOBIN 0.3 % (0.5-1.5); BG DEOXYHEMOGLOBIN 7.6 % (0.0-5.0); BG FRACTION INSPIRED OXYGEN 30; BG HCO3 ACT 18.4 mmol/L (21.0-28.0); BG METHEMOGLOBIN 0.3 % (0.5-1.5); BG OXYGEN SATURATION 92.4 % (94.0-98.0); BG OXYHEMOGLOBIN 91.8 % (94.0-98.0); BG PCO2 35.7 mmHg (35.0-48.0); BG PO2 74.1 mmHg (83.0-108.0); BG SAMPLE SITE RIGHT BRACHIAL; BG TOTAL HEMOGLOBIN 8.2 g/dL (13.5-17.5); BG VENT MODE VENT - AC
[2024-09-29] MEDS: HEPARIN BOLUS PRN aPTT 30-44 IV (19:39)
[2024-09-29] MEDS: PIPERACILLIN/TAZO 3.375G/50ML 50 ML IV SCH (21:03)
[2024-09-30] VITALS (26 sets, daily range): BP systolic 38–90; BP diastolic 19–73; PULSE 29–81; RESP 13–35; TEMP 37.11408; O2SAT 38–96
[2024-09-30] MEDS: VASOPRESSIN 20 UNIT in SODIUM CHLORIDE 0.9% 99 ML IV PRN (00:34)
[2024-09-30] MEDS: EPINEPHRINE 5 MG in SODIUM CHLORIDE 0.9% 245 ML IV PRN (01:26)
[2024-09-30] MEDS: DOPAMINE 400MG/250ML PREMIX 250 ML IV PRN (02:00)
[2024-09-30] MEDS: SODIUM CHLORIDE 0.9% 500 ML IV ONE (02:22)
[2024-09-30] MEDS: PHENYLEPHRINE 50MG/250ML PMX 250 ML IV PRN (02:32)
[2024-09-30 02:36] LABS: HEMATOCRIT 26.6 % (42.0-52.0); HEMOGLOBIN 8.2 g/dL (14.0-18.0); MEAN CORPUSCULAR HEMOGLOBIN 32.9 pg (28.0-32.0); MEAN CORPUSCULAR HGB CONC 30.8 g/dL (31.0-37.0); MEAN CORPUSCULAR VOLUME 106.6 fL (80.0-94.0); PLATELET 412 x1000/uL (130-400); RED BLOOD CELL COUNT 2.49 mill/uL (4.7-6.1); RED CELL DISTRIBUTION WIDTH 15.6 % (11.6-14.6)
[2024-09-30 02:47] LABS: POTASSIUM 6.1 mEq/L (3.5-5.1)
[2024-09-30 02:49] LABS: CALCIUM 6.3 mg/dL (8.7-10.4)
[2024-09-30 02:51] LABS: BG BASE EXCESS -26.9 mmol/L (-2.0-3.0); BG CARBOXYHEMOGLOBIN 0.3 % (0.5-1.5); BG DEOXYHEMOGLOBIN 21.2 % (0.0-5.0); BG FRACTION INSPIRED OXYGEN 30; BG HCO3 ACT 6.3 mmol/L (21.0-28.0); BG METHEMOGLOBIN 0.3 % (0.5-1.5); BG OXYGEN SATURATION 78.7 % (94.0-98.0); BG OXYHEMOGLOBIN 78.2 % (94.0-98.0); BG PCO2 43.3 mmHg (35.0-48.0); BG PO2 77.4 mmHg (83.0-108.0); BG SAMPLE SITE LEFT FEMORAL; BG TOTAL HEMOGLOBIN 7.7 g/dL (13.5-17.5); BG VENT MODE VENT - AC
[2024-09-30] MEDS: DEXTROSE 50% WATER 50ML SYRINGE IV PRN (03:07)
[2024-09-30] MEDS: SODIUM BICARBONATE 8.4% 50MEQ/50ML SYR IV NR (03:07)
[2024-09-30] MEDS: ATROPINE SULFATE 1MG/10ML SYR IV PRN (03:07)
[2024-09-30 03:44] LABS: CREATININE 4.2 mg/dL (0.6-1.3)
[2024-09-30] MEDS: EPINEPHRINE 10 MG in SODIUM CHLORIDE 0.9% 240 ML IV PRN (04:20)
== END 2024-09-30 07:00 | DRG 853 ==
LOC: ER 21:26 → MICUNO 09-12 00:22 → EDBEDREQ 09-12 00:32 → EDBEDREQTM 09-12 00:32 → CVICU 09-17 20:15 → 5EST 09-23 10:50 → CVICU 09-28 05:46
PROVIDERS: ADMIT Internal Medicine; ATTEND Internal Medicine
PROC: 5A1955Z Respiratory Ventilation, Greater than 96 Consecutive Hours (ICD-10-PCS; principal; 2024-09-11)
PROC: 0BH17EZ Insertion of Endotracheal Airway into Trachea, Via Natural or Artificial Opening (ICD-10-PCS; 2024-09-11)
PROC: 5A12012 Performance of Cardiac Output, Single, Manual (ICD-10-PCS; 2024-09-11)
PROC: 02HV33Z Insertion of Infusion Device into Superior Vena Cava, Percutaneous Approach (ICD-10-PCS; 2024-09-12)
PROC: B548ZZA Ultrasonography of Superior Vena Cava, Guidance (ICD-10-PCS; 2024-09-12)
PROC: 5A12012 Performance of Cardiac Output, Single, Manual (ICD-10-PCS; 2024-09-12)
PROC: 5A12012 Performance of Cardiac Output, Single, Manual (ICD-10-PCS; 2024-09-13)
PROC: 5A12012 Performance of Cardiac Output, Single, Manual (ICD-10-PCS; 2024-09-14)
PROC: 4A023N7 Measurement of Cardiac Sampling and Pressure, Left Heart, Percutaneous Approach (ICD-10-PCS; 2024-09-15)
PROC: B2111ZZ Fluoroscopy of Multiple Coronary Arteries using Low Osmolar Contrast (ICD-10-PCS; 2024-09-15)
PROC: 30233N1 Transfusion of Nonautologous Red Blood Cells into Peripheral Vein, Percutaneous Approach (ICD-10-PCS; 2024-09-15)
PROC: 02HV33Z Insertion of Infusion Device into Superior Vena Cava, Percutaneous Approach (ICD-10-PCS; 2024-09-15)
PROC: B548ZZA Ultrasonography of Superior Vena Cava, Guidance (ICD-10-PCS; 2024-09-15)
PROC: 5A12012 Performance of Cardiac Output, Single, Manual (ICD-10-PCS; 2024-09-17)
PROC: 02100Z9 Bypass Coronary Artery, One Artery from Left Internal Mammary, Open Approach (ICD-10-PCS; 2024-09-18)
PROC: 021309W Bypass Coronary Artery, Four or More Arteries from Aorta with Autologous Venous Tissue, Open Approach (ICD-10-PCS; 2024-09-18)
PROC: 06BQ4ZZ Excision of Left Saphenous Vein, Percutaneous Endoscopic Approach (ICD-10-PCS; 2024-09-18)
PROC: 06BP4ZZ Excision of Right Saphenous Vein, Percutaneous Endoscopic Approach (ICD-10-PCS; 2024-09-18)
PROC: 5A12012 Performance of Cardiac Output, Single, Manual (ICD-10-PCS; 2024-09-20)
PROC: 5A0955A Assistance with Respiratory Ventilation, Greater than 96 Consecutive Hours, High Flow/Velocity Cannula (ICD-10-PCS; 2024-09-20)
PROC: 5A12012 Performance of Cardiac Output, Single, Manual (ICD-10-PCS; 2024-09-21)
PROC: 0W9C30Z Drainage of Mediastinum with Drainage Device, Percutaneous Approach (ICD-10-PCS; 2024-09-28)
PROC: 5A12012 Performance of Cardiac Output, Single, Manual (ICD-10-PCS; 2024-09-28)
PROC: 5A12012 Performance of Cardiac Output, Single, Manual (ICD-10-PCS; 2024-09-28)
PROC: 02HV33Z Insertion of Infusion Device into Superior Vena Cava, Percutaneous Approach (ICD-10-PCS; 2024-09-28)
PROC: B548ZZA Ultrasonography of Superior Vena Cava, Guidance (ICD-10-PCS; 2024-09-28)
PROC: 0BH17EZ Insertion of Endotracheal Airway into Trachea, Via Natural or Artificial Opening (ICD-10-PCS; 2024-09-28)
PROC: 5A1945Z Respiratory Ventilation, 24-96 Consecutive Hours (ICD-10-PCS; 2024-09-28)
PROC: 5A12012 Performance of Cardiac Output, Single, Manual (ICD-10-PCS; 2024-09-30)
DX: A41.9 Sepsis, unspecified organism (principal); G92.8 Other toxic encephalopathy; I21.A1 Myocardial infarction type 2; J96.01 Acute respiratory failure with hypoxia; J69.0 Pneumonitis due to inhalation of food and vomit; R65.21 Severe sepsis with septic shock; N17.0 Acute kidney failure with tubular necrosis; M62.82 Rhabdomyolysis; I42.9 Cardiomyopathy, unspecified; I13.0 Hypertensive heart and chronic kidney disease with heart failure and stage 1 through stage 4 chronic kidney disease, or unspecified chronic kidney disease; E87.20 Acidosis, unspecified; I47.19 Other supraventricular tachycardia; Z20.822 Contact with and (suspected) exposure to COVID-19; I46.9 Cardiac arrest, cause unspecified; E87.6 Hypokalemia; R73.9 Hyperglycemia, unspecified; D75.89 Other specified diseases of blood and blood-forming organs; D64.9 Anemia, unspecified; E83.39 Other disorders of phosphorus metabolism; I25.10 Atherosclerotic heart disease of native coronary artery without angina pectoris; E78.5 Hyperlipidemia, unspecified; I44.0 Atrioventricular block, first degree; R13.10 Dysphagia, unspecified; S01.511A Laceration without foreign body of lip, initial encounter; E83.51 Hypocalcemia; E87.5 Hyperkalemia; N18.1 Chronic kidney disease, stage 1; R74.01 Elevation of levels of liver transaminase levels; E80.6 Other disorders of bilirubin metabolism; I48.91 Unspecified atrial fibrillation; X58.XXXA Exposure to other specified factors, initial encounter; Y93.9 Activity, unspecified; Y92.89 Other specified places as the place of occurrence of the external cause; Y99.8 Other external cause status
CPT/HCPCS: 31500; 36415; 36573; 36600; 71045; 71275; 76770; 80048; 80053; 80061; 80076; 80305; 80320; 81003; 82040; 82375; 82550; 82607; 82746; 82805; 82962; 83036; 83605; 83735; 83880; 84100; 84132; 84145; 84443; 84478; 84480; 84484; 85025; 85027; 85347; 85379; 85384; 86850; 86900; 86920; 87070; 87106; 87426; 87804; 88304; 92610; 93005; 93306; 93458; 93880; 93970; 94002; 94003; 94070; 94640; 94664; 94667; 97110; 97163; 97166; 97530; 97535; 99291; A4606; A4663; A6261; C1725; C1729; C1751; C1758; C1769; C1887; C1893; J0282; J0461; J0610; J0690; J0885; J1200; J1250; J1265; J1630; J1644; J1815; J1940; J2003; J2060; J2250; J2270; J2405; J2440; J2470; J2543; J2704; J2720; J2765; J3010; J3370; J3475; J3480; J3490; J7030; J7042; J7050; J7060; J7070; J7608; J7626; L3908; P9016; Q9957; Q9967; C1713; G0480; J0131